=== PATIENT | female | born 1945 | race Caucasian/White ===

== ENCOUNTER 2023-07-14 17:22 | Emergency (ER) | payer MEDICARE, SELFPAY ==
[2023-07-14 17:29] VITALS: BP 153/74; PULSE 80; RESP 16; TEMP 36.6; BMI 25.2
--- NOTE | 2023-07-14 17:39 | XR_ITS ---
[facility] [place] [id number] Patient Name: MARLENE CLIFFORD MRN: [id number] date: 1945 Sex: F Assigned Patient Location: ER Current Patient Location: ER Accession/Order Number: [id number] Exam Date: 07/14/2023 17:55 Report Date: 07/14/2023 18:24 At the request of: BLOSSOM MOURA Procedure: XR ankle RT min 3V EXAM: XR tibia fibula RT 2V, XR ankle RT min 3V, XR knee RT 3V HISTORY: Fall COMPARISON: None. TECHNIQUE: 3 views of the knee, 4 views of the tibia and fibula and 3 views of the ankle FINDINGS: IMPRESSION: No fracture, dislocation, subluxation or osseous lesion. 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 No joint effusions. Joint spaces are unremarkable for patient's age. Nondescript soft tissue edema. Electronically authenticated by: DANIELLA EPPS Date: 07/14/2023 18:24
--- NOTE | 2023-07-14 17:39 | XR_ITS ---
[facility] [place] [id number] Patient Name: MARLENE CLIFFORD MRN: [id number] date: 1945 Sex: F Assigned Patient Location: ER Current Patient Location: ER Accession/Order Number: [id number] Exam Date: 07/14/2023 17:55 Report Date: 07/14/2023 18:24 At the request of: BLOSSOM MOURA Procedure: XR tibia fibula RT 2V EXAM: XR tibia fibula RT 2V, XR ankle RT min 3V, XR knee RT 3V HISTORY: Fall COMPARISON: None. TECHNIQUE: 3 views of the knee, 4 views of the tibia and fibula and 3 views of the ankle FINDINGS: IMPRESSION: No fracture, dislocation, subluxation or osseous lesion. 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 No joint effusions. Joint spaces are unremarkable for patient's age. Nondescript soft tissue edema. Electronically authenticated by: DANIELLA EPPS Date: 07/14/2023 18:24
--- NOTE | 2023-07-14 17:39 | XR_ITS ---
[facility] [place] [id number] Patient Name: MARLENE CLIFFORD MRN: [id number] date: 1945 Sex: F Assigned Patient Location: ER Current Patient Location: ER Accession/Order Number: [id number] Exam Date: 07/14/2023 17:55 Report Date: 07/14/2023 18:24 At the request of: BLOSSOM MOURA Procedure: XR knee RT 3V EXAM: XR tibia fibula RT 2V, XR ankle RT min 3V, XR knee RT 3V HISTORY: Fall COMPARISON: None. TECHNIQUE: 3 views of the knee, 4 views of the tibia and fibula and 3 views of the ankle FINDINGS: IMPRESSION: No fracture, dislocation, subluxation or osseous lesion. 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 No joint effusions. Joint spaces are unremarkable for patient's age. Nondescript soft tissue edema. Electronically authenticated by: DANIELLA EPPS Date: 07/14/2023 18:24
--- NOTE | 2023-07-14 17:42 | ED_ITS ---
HPI - Extremity Injury (Lower) General Chief Complaint: Extremity Injury, Lower Stated Complaint: FELL AT HOME INJURED R LEG Time Seen by Provider: 07/14/23 17:27 Source: patient Mode of arrival: Wheelchair Limitations: no limitations History of Present Illness HPI Narrative: 78-year-old female presents for pain in her right leg. At noon she fell down some carpeted stairs. She complains of pain from just below her knee all the way down to her ankle. She didn't hit her head and didn't lose consciousness. No other injury was sustained. Related Data Allergies Allergy/AdvReac Type Severity Reaction Status Date / Time Latex, Natural Rubber Allergy Severe Verified 07/14/23 17:29 acetaminophen [From Vicodin] AdvReac Severe Unconscious Verified 07/14/23 17:29 hydrocodone [From Vicodin] AdvReac Severe Unconscious Verified 07/14/23 17:29 Review of Systems ROS Narrative A ten point review of systems is negative except as noted above. PFSH PFSH Social History Smoking status: Never smoker Exam Narrative Exam Narrative: Nurses note and vital signs reviewed and patient is not hypoxic. General: The patient appears well and in no apparent distress. Patient is resting comfortably on cart. Skin: Warm, dry, no pallor noted. There is no rash noted. Head: Normocephalic, atraumatic Eye: Normal conjunctiva, no drainage, EOMI. PERRL Ears, Nose, Mouth, and Throat: oral mucosa is moist. Nares patent. Cardiovascular: Regular Rate and Rhythm Respiratory: Patient is in no distress, no accessory muscle use, lungs are clear to auscultation, no wheezing, rales or rhonchi Back: non-tender, no CVA tenderness bilaterally to percussion. GI: soft and nontender Musculoskeletal: she has some tenderness of the inferior portion of the right knee and across the anterior ankle. The foot itself is nontender including the 5th metatarsal area. Neurological: A&O, normal speech Psychiatric: Cooperative Constitutional Vital Signs, click to edit/add: Last Vital Signs Temp 98 F 07/14/23 17:29 Pulse 80 07/14/23 17:29 Resp 16 07/14/23 17:29 BP 153/74 H 07/14/23 17:29 Course Vital Signs Vital signs: Vital Signs Temperature 98 F 07/14/23 17:29 Pulse Rate 80 07/14/23 17:29 Respiratory Rate 16 07/14/23 17:29 Blood Pressure 153/74 H 07/14/23 17:29 Temperature 98 F 07/14/23 17:29 Pulse Rate 80 07/14/23 17:29 Respiratory Rate 16 07/14/23 17:29 Blood Pressure 153/74 H 07/14/23 17:29 MDM - Extremity Injury (Lower) MDM Narrative Medical decision making narrative: x-rays per radiologist showed no acute findings and the patient is able to be discharged home. She was recommended ice and rest. Treatment diagnosis and fo llow-up were discussed with the patient. Differential Diagnosis Differential diagnosis: Likely ankle sprain and strain and ankle fracture Imaging Data x-rays of the right knee, right tibia-fibula, right ankle: Radiologist's impression: no acute findings per radiologist Discharge Plan Discharge Chief Complaint: Extremity Injury, Lower Clinical Impression: Fall Patient Disposition: Home, Self-Care Time of Disposition Decision: 18:31 Condition: Good Mode of Transportation: Private Vehicle Instructions: Fall Prevention for Older Adults (ED) Stand Alone Forms: Portal Instructions Referrals: Physician,Non-Staff, MD [Primary Care Provider] - 1 week
== END 2023-07-14 18:50 | disposition home or self-care (01) ==
PROVIDERS: Emergency Provider Emergency Medicine
DX: S89.91XA Unspecified injury of right lower leg, initial encounter (principal); W10.8XXA Fall (on) (from) other stairs and steps, initial encounter
CPT/HCPCS: 73562; 73590; 73610; 99284

== ENCOUNTER 2024-09-16 11:33 | Outpatient (OUT) | payer MEDICARE, SELFPAY ==
--- NOTE | 2024-09-16 11:52 | XR_ITS ---
The [address] [address] Patient Name: MARLENE CLIFFORD MRN: [id number] date: 1945 Sex: F Assigned Patient Location: [facility] Current Patient Location: [facility] Accession/Order Number: [id number] Exam Date: 09/16/2024 12:22 Report Date: 09/16/2024 12:34 At the request of: EVELYNE LEGGETT MD Procedure: XR lumbar spine 6V w bending CLINICAL DATA: Posterior neck pain for the past week. Chronic low back pain, greater on the right with radiation to the leg. No injury. CERVICAL SPINE WITH FLEXION AND EXTENSION VIEWS - 7 views: COMPARISON: None TECHNIQUE: AP, lateral (neutral, flexion, extension) both oblique and odontoid views were obtained. FINDINGS: There is osteopenia. There is no evidence of fracture. There is minimal anterolisthesis of C4 on C5. This is less evident with extension. Disc space narrowing and endplate spurring is present at C5-6. There is mild bony foraminal encroachment at C6, greater on the right. The atlantoaxial relationship is preserved. There is no prevertebral soft tissue swelling. XR/XR lumbar spine 6V w bending IMPRESSION: MILD DEGENERATIVE CHANGE, GREATEST AT C5-6. LUMBAR SPINE WITH FLEXION-EXTENSION VIEWS - 7 views COMPARISON: None AP, lateral (neutral, flexion and extension), both oblique and lateral coned-down views lumbosacral junction were obtained. There is osteopenia. No acute fractures or displacement are seen. No instability is noted. There is no disproportionate joint space narrowing. There is minor endplate spurring and mild lower lumbar facet hypertrophy. No pars defects are identified. The SI joints are intact and show slight sclerosis. No paraspinal soft tissue abnormalities are seen. IMPRESSION: OSTEOPENIA AND MINIMAL DEGENERATIVE CHANGE. NO ACUTE BONY FINDINGS. Impression dictated by: Evelyne Blackwell M.D.09/16/2024 12:34 PM Dictation Location: [facility] Electronically authenticated by: [id number] Y Date: 09/16/2024 12:34
--- NOTE | 2024-09-16 11:52 | XR_ITS ---
The [address] [address] Patient Name: MARLENE CLIFFORD MRN: [id number] date: 1945 Sex: F Assigned Patient Location: [facility] Current Patient Location: [facility] Accession/Order Number: [id number] Exam Date: 09/16/2024 12:22 Report Date: 09/16/2024 12:34 At the request of: EVELYNE LEGGETT MD Procedure: XR lumbar spine 6V w bending CLINICAL DATA: Posterior neck pain for the past week. Chronic low back pain, greater on the right with radiation to the leg. No injury. CERVICAL SPINE WITH FLEXION AND EXTENSION VIEWS - 7 views: COMPARISON: None TECHNIQUE: AP, lateral (neutral, flexion, extension) both oblique and odontoid views were obtained. FINDINGS: There is osteopenia. There is no evidence of fracture. There is minimal anterolisthesis of C4 on C5. This is less evident with extension. Disc space narrowing and endplate spurring is present at C5-6. There is mild bony foraminal encroachment at C6, greater on the right. The atlantoaxial relationship is preserved. There is no prevertebral soft tissue swelling. XR/XR cervical spine w flex/ext IMPRESSION: MILD DEGENERATIVE CHANGE, GREATEST AT C5-6. LUMBAR SPINE WITH FLEXION-EXTENSION VIEWS - 7 views COMPARISON: None AP, lateral (neutral, flexion and extension), both oblique and lateral coned-down views lumbosacral junction were obtained. There is osteopenia. No acute fractures or displacement are seen. No instability is noted. There is no disproportionate joint space narrowing. There is minor endplate spurring and mild lower lumbar facet hypertrophy. No pars defects are identified. The SI joints are intact and show slight sclerosis. No paraspinal soft tissue abnormalities are seen. IMPRESSION: OSTEOPENIA AND MINIMAL DEGENERATIVE CHANGE. NO ACUTE BONY FINDINGS. Impression dictated by: Evelyne Blackwell M.D.09/16/2024 12:34 PM Dictation Location: [facility] Electronically authenticated by: [id number] Y Date: 09/16/2024 12:34
--- OUTSIDE RECORDS SUMMARY | 2024-09-16 11:56 | XMS_ITS | CCD ---
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 Name Role Phone Evelyne Leggett MD Primary Care Provider [phone] EVELYNE LEGGETT Primary Care Unavailable SELF, SELF Referring Unavailable RHIANNA, MEEK Maguire Attending Unavailable MISC, DR WELSH Attending Unavailable MISC, DR WELSH Consulting Unavailable MISC, DOCTOR Admitting Unavailable MISC, DOCTOR Attending Unavailable MISC, DR WELSH Consulting Unavailable MISC, DR WELSH Admitting Unavailable ZIEBER, DR MIGEL Soler Consulting Unavailable MD Evelyne Leggett Primary Care Provider DO Jayro Schulz Attending Provider Evelyne Leggett Primary Care Unavailable Jayro Schulz Attending Unavailab Jayro Montero Admitting Unavailab EVELYNE Fu Referring Unavailable JOVANNI NARVAEZ Attending Unavailable Evelyne Leggett Attending Unavailable Evelyne Leggett Primary Care Unavailable Evelyne Leggett Primary Care Unavailable Evelyne Leggett Attending Unavailable Evelyne Leggett Primary Care Unavailable Evelyne Leggett Attending Unavailable Evelyne Leggett Admitting Unavailable Evelyne Leggett Attending Unavailable Evelyne Leggett Primary Care Unavailable Evelyne Leggett Admitting Unavailable Evelyne Leggett Attending Unavailable Evelyne Leggett Primary Care Unavailable Allergies Allergy Classification Reported Allergen(s) Allergy Type Date of Onset Reaction(s) Facility (1 source) ALLERGIES NOT ON FILE; Translations: [ALLERGIES NOT ON FILE] Propensity to adverse reactions (disorder) [facility] Repository (1 source) Acetaminophen / HYDROcodone; Translations: [Vicodin] Drug Allergy [facility] Repository (1 source) Latex; Translations: [Latex] Propensity to adverse reactions to drug (disorder) [facility] Repository Medications Current Medications Medication Drug Class(es) Dates Sig (Normalized) Sig (Original) pravastatin sodium 40 mg oral tablet (1 source) HMG-CoA Reductase Inhibitor Start: 04-08-2022 take 1 tablet by mouth once daily pravastatin 40 MG tablet Take 40 mg by mouth daily. 0 04/08/2022 Active Problems Active Problems Problem Classification Problem Date Documented Da te Episodic/Chronic Disorders of lipid metabolism (1 source) Hyperlipidemia, unspecified; Translations: [HYPERLIPIDEMIA UNSPECIFIED] Onset: 04-24-2022 Chronic Osteoarthritis (2 sources) Unilateral primary osteoarthritis, unspecified hip; Translations: [Unilateral primary osteoarthritis, unspecified hip] Onset: 03-10-2024 Chronic Other aftercare (1 source) [facility] (current) use of non-steroidal anti-inflammatories (NSAID); Translations: [FCI USE NSAID] Onset: 04-24-2022 Episodic Other eye disorders (4 sources) Other forms of nystagmus; Translations: [OTHER FORMS OF NYSTAGMUS] Onset: 04-01-2022 Chronic Other upper respiratory infections (3 sources) Acute upper respiratory infection; Translations: [Acute upper respiratory infection, unspecified] Onset: 04-20-2022 Episodic Residual codes; unclassified (4 sources) Other amnesia; Translations: [OTHER AMNESIA] Onset: 04-22-2022 Episodic Residual codes; unclassified (2 sources) Localized edema; Translations: [Localized edema] Onset: 03-10-2024 Episodic Retinal detachments; defects; vascular occlusion; and retinopathy (2 sources) Unspecified macular degeneration; Translations: [Unspecified macular degeneration] Onset: 03-10-2024 Chronic Spondylosis; intervertebral disc disorders; other back problems (1 source) Dorsalgia, unspecified; Translations: [Dorsalgia, unspecified] Onset: 08-24-2024 Episodic Unclassified (1 source) Monocular exotropia, right eye; Translations: [Monocular exotropia, right eye] Onset: 01-17-2023 Unclassified (1 source) Low back pain, unspecified; Translations: [Low back pain, unspecified] Onset: 03-10-2024 Past or Other Problems Problem Classification Problem Date Documented Da te Episodic/Chronic Unclassified (1 source) Low back pain, unspecified; Translations: [Low back pain, unspecified] Onset: 03-10-2024 Results Test Name Value Interpretation Reference Range Facility Reminder Messageson 09-14-19 Reminder Messages - From: Evelyne Leggett MD To: [facility] ([facility]); Sent: 09/13/2024 12:07:56 EST ! Show up: 09/13/2024 12:07:56 EST Subject: Results Follow Up Actions: Call the patient with result(s) Due Date/Time: 09/14/2024 12:07:00 EST Reminder Comments: Please tell her that her gallbladder did show some wall thickness which may suggest previous inflammation. Consider referral to surgeon to review results or monitor symptoms. RENA Results: Date Result Type Result Name 09/09/2024 10:29 Radiology US Gallbladder From: Maru Hooper ([facility] ([facility])) To: Evelyne Leggett MD; Sent: 09/13/2024 13:36:11 EST Show up: 09/13/2024 13:36:00 EST Subject: RE: Results Follow Up she would like a referral referral completed. RAMYAK Normal [facility] Reminder Messageson 09-13-19 Reminder Messages - From: Evelyne Leggett MD To: [facility] ([facility]); Sent: 09/13/2024 12:08:28 EST ! Show up: 09/13/2024 12:08:28 EST Subject: Results Follow Up Actions: Call the patient with result(s) Due Date/Time: 09/14/2024 12:08:00 EST Reminder Comments: Please tell her that her echocardiogram looks pretty good and just has a little bit of leakage from one of her valves which we can monitor. RENA Results: Date Result Type Result Name 09/09/2024 12:42 Radiology US Echocardiogram Complete patient informed Normal [facility] US Echocardiogram Completeon 09-09-2024 US Echocardiogram Complete APPROVED REPORT EXAM: Comprehensive 2D, Doppler, and color-flow Echocardiogram BSA: 1.87 m2BP: 170/80 mmHg Rhythm: NSR Indications: Dyspnea on exertion, Fatigue, Back pain Past Med. Hx: GERD, HLD Other Information Study Quality: Good Conclusion The left ventricular systolic function is normal. The left ventricular ejection fraction is within the normal range. Right atrium is mildly dilated. Mild mitral regurgitation. There is moderate tricuspid regurgitation. The right atrial pressure is estimated at 3 mmHg. Right ventricular systolic pressure is estimated at 37.4 mmHg. Left Ventricle The left ventricle is normal size. There is normal left ventricular wall thickness. The left ventricular systolic function is normal. The left ventricular ejection fraction is within the normal range. LVEF is 60-65%. There is normal LV segmental wall motion. E/A reversal is present. Tissue Doppler imaging reveals indeterminate left ventricular diastolic dysfunction. Right Ventricle The right ventricle is normal size. The right ventricular systolic function is normal. Atria The left atrium size is normal. Right atrium is mildly dilated. Aortic Valve Aortic valve is trileaflet. Aortic valve leaflets are mildly thickened. Adequate excursion of aortic valve leaflets. There is no aortic valvular stenosis. No aortic regurgitation is present. Mitral Valve Mitral valve leaflets are mildly thickened. Mild mitral regurgitation. Tricuspid Valve The tricuspid valve is normal in structure. There is moderate tricuspid regurgitation. The right atrial pressure is estimated at 3 mmHg. Right ventricular systolic pressure is estimated at 37.4 mmHg. Pulmonic Valve The pulmonary valve is normal in structure. Trace pulmonic regurgitation. Great Vessels The aortic root is normal in size. IVC is normal in size and collapses >50% with inspiration. Pericardium There is no pericardial effusion. 2D Dimensions RV Minor (Base)3.94 cmLV EDV (Teich) 89.14 mL IVSd 0.85 cm F: 0.6 - 0.9LV ESV (Teich) 36.86 mL LVDd 4.43 cm F: 3.9 - 5.3Left Atrium 2.85 cm F: 2.7 - 3.8 PWd 0.89 cm F: 0.6 - 1.0Sinus of Valsalva3.20 cm LVDs 3.06 (2.1 - 4.0 cm) Sinotubular Junction2.47 cm F: 2.3 - 2.9 LV Rfnq233.33 g LVOT Diameter 1.80 cm IVC1.54 (<= 2.1cm) M-Mode Dimensions Aortic Root2.76 cm F: < 3.8MV EPSS0.40 ( < 0.7 cm) Aortic Cusp Exc1.96 (1.5 - 2.6 cm)TAPSE 2.5 (>1.7) Left Atrium3.89 cm F: 2.7 - 3.8 LV Volume - Method of Disks (Hays's) Single Plane 2D LV VolumesBiplane 2D LV Volumes LV EDV A4C79.6 mLLV EDV BP84.26 mL F: 46 - 106 LV ESV A4C29.9 mLLV ESV BP31.9 mL LVEF(%) A4C62.4 %LVEF(%) BP62.10 % F: 54 - 74 LV EDV A2C85.2 mLLV EDV BP Index44.81 mL/m2 F: 29 - 61 LV ESV A2C32.7 mLSV (BP)52.33 mL LVEF(%) A2C61.6 %SV (BP) Index27.88 mL/m2 CO BP3.2 L/min Left Atrium Volume Systole (Method of Disks) Single Plane 4 CH 46.20 mLBiplane LA Uhbguo84.85 mL Single Plane 2 CH30.74 mLLA ESV Index23.86 mL/m2 Right Atrium Area Systole RA Systolic Area A4C19.60 cm2RA Systolic Vol A4C62.10 mL Aortic Valve AoV Peak Velocity1.32 m/sLVOT Peak Velocity1.01 m/s AO Mean Velocity0.85 m/sLVOT Mean Velocity0.55 m/s AO Peak PG7.01 mmHgLVOT Peak PG4.06 mmHg AO Mean PG3.34 mmHgLVOT Mean PG1.55 mmHg AO V2 VTI33.38 cmLVOT V1 VTI25.56 cm FERNANDA (Vmax)1.93 pz4NECX Area 2.54 cm2 FERNANDA (VTI)1.95 cm2SV (LVOT) 64.98 mL Indexed FERNANDA (VTI)1.04 cm2/m2 Mitral Valve MV Max Fmtqyfsd082.21 m/sMV PHT85.72 ms MV E Max Velocity0.59 m/sMVA (PHT)2.57 cm2 MV A Max Velocity0.75 m/sMR DGL109.31 cm E/A Ratio0.8MR Peak Velocity5.18 m/s MV Decel. Zqbm056.60 ms TDI Med e' Velocity5.38 cm/sMV E / Medial e' 10.91 Lat e' Velocity7.25 cm/sMV E / Lateral e' 8.09 TV S'11.24 cm/s Pulmonary Valve PV Peak Velocity0.72 m/sPV Peak PG2.09 mmHg MO End Diastolic Jorje.66.82 m/s PV Mean PG1.22 mmHg Tricuspid Valve TR Peak Velocity2.93 m/sRAP Estimate3.00 mmHg TR Peak PG34.42 yqGyLILQ93.42 mmHg Final Signed (Electronic Signature): Lavon Mathis MD 09/09/24 12:42 p Technologist: [facility] US Gallbladderon 09-09-2024 US Gallbladder EXAMINATION: US Gallbladder HISTORY: Right upper quadrant pain COMPARISON: No relevant comparison available. TECHNIQUE: Transabdominal evaluation of the right upper quadrant. FINDINGS: LIVER: Contains a 4.7 cm and a 2.2 cm rounded anechoic structure favoring benign cysts. Color Doppler demonstrates patent hepatic veins. PORTAL VEIN: Duplex Doppler demonstrates normal hepatopetal flow pattern with flow velocity averaging 20 cm/s. GALLBLADDER: Wall thickness just exceeds upper limits of normal, 3.5 mm. No appreciable stones or free fluid. Negative sonographic Banks's sign. BILIARY: No abnormal dilation or stones. Common bile duct diameter is within normal limits. PANCREAS: Limited evaluation. No visible mass, abnormal atrophy, or duct dilation. KIDNEY: No hydronephrosis. No visible mass or stones. Size: 9.9 x 4.7 x 5.6 cm IMPRESSION: 1. Gallbladder wall thickness is just exceeds upper limits of normal; nonspecific but suggestive of acute versus chronic cholecystitis. The lack of a positive Banks's sign and the lack of stones and free fluid weigh against acute cholecystitis. Final Dictated by: Migel Tafoya MD Dictated DT/TM: 09/09/24 10:20 Signed (Electronic Signature): Migel Tafoya MD 09/09/24 10:27 a Technologist: [facility] Coding Summaryon 08-30-2024 Coding Summary HTMLBase 64 QzugfnunQVh7wAt+PGhlY WQ+PR1ATVZuY52loOJejF 8sG4IXBRfVRgzvISOEJHa OBvHacxMfML2uaDZpZCCh IC8+RN5hQIVdKgidqWPnq 0M5mQU2W29yss1ePUxhuI G5WBNnDmFpdsfzx0mzqUh 6IDcuNmluOyBt CBUifF75WWJ4kH45Kx89w PSxcGPqn2blhNp8UxLhYE DgKVY5lUoxOTznf8FhYFF uO31yoTVkh9O3 OJKsgXswbGFkDcAepXP3m F0eJBfipmtqf3ficvjxXt w6tp78dZWyh3G5yZM5N4W djzJ5KESkgOMk ByskhDNWgY7vuuhoi2vwl zacVuCyECPbFCl7CVv4UZ ErrAnaReOaSO21NOL7NJT yvgJpY9TnLWUl tMtuBeM3k4T1Ro8JO1YPY yqjS4ECQMIOWGcxnLE+PC 68vl49P4TwXjykRbp8SAG fBMW3jCZ2dM3a NIIuNDdjr9B4bXU3S7Tga xRzyz5sz0qeFTCxAJzzN6 6uoZKnf8B4GUAqjGM3CMQ fiVpySoWciV74 Oyc+SAWnhUyei0LxUehub 3hhc7ztxWm1IlppSRFxyi DqoCqyYSY1p1OmHd4kPMW teHK5gYQ6nY1k DvTrRoR4VDnmR352TdJvp JNtEsauU37dU2WpfRK+PH TbVsy3FSOaqUvcQR1oE0D hZGRpbmctbGVm bIyyHN9rQPOjryvnKHMil L4bPPBtM9s0DeJfRlX6BR nsE1PkCHBfavgtNc96gC8 bXbCmQgW5PDrw G5MxjdJ3CXRwhVRzPLpbC MY9S35ev3E0LWJtYFBuID R1hRX5eU7dpQdyckztyBQ mdDsgdmVydGlj VVbyIVxcV312HBNkqGcjM kNvZGluZyBEYXRlOiAgMD IvMTAvMjAyNTwvdGQ+PHR kDBD3bLcuAAAc cXMhFYbjLz0bkTvzpYncD P8eSNUelqlkOEEsqE0bTB GhjPNimYioNU4jVRLuscc id225JhPbTIZ1 TERicWGsG1WlqC1pZmIfO KCwDGRxS3EksLIpHFehK5 85QNtkPoF9SPVrfpJlD5E sLWFsaWduOiB0 x0L3Lr0Dw1DbksfkE7Gib DCrJrJwMkoiHQr3B3BdXn wvdHI+XI01XIXmWD13TWk 1QCB4sTsxBLak FXKoY4ZzsO2lZxLdZEUrI GRkOyc+PHRhYmxlIHdpZH RoPScxMDAlJyBzdHlsZT0 dEc7jESXrOZOp rYuknZLbKoCjn9llQYZcW TkmHR1whTtyB3YtgIG2AT Cvn3n5Jj80Y60wE5XciQM +BTDumGK1dST3 vJ3qOrTgTxO3NKawX963V vHovUMyTelil1luc2maxE u5NcY2XFCwxrHccBalUHX 6o3IcKb92L97g IHdpZHRoPSIxNSUiIHZhb Umbod3wvZ4eWs1+PGNvbC I2jXY9yV5fKoCoTnA1VFp tW875WsJsbZQk Hlgom1oid5hqaHj6EeWsC WJkriQwkJzyLUA0s1TkNy 01X0BsgZqhz6QwNen1xn2 7fEQog8L9aPB0 B9UdGIGmeulqkYIkfZyvE J0yQUGwtlptZDQixU2jKJ JkA0b1JtBwViD3MIkvW5W neaY1DBNzhTGn DJOliZPWxZ8xmmoxd3usg hlmPaLfQJOgWJr5PXi6PJ UmhHzsUmPjNZQ5FqL6YVF 8xTXqnB7cjFem uynvtY7oLjj+RUG7bXImf OSCPQ5uOmidpLG+PHRkIH X8tVpiPRwcFMMelJ0wFKY kY3u8XqGsQoU8 BPpjM6LselT1SLRynMInA ZXznQAZiW3cayegr3xrbu atJlTrCYZvEOi5OFu5OZY saWduOiBsZWZ0 KaX5OYD5sTLelY4uaWbae wkuyX2sNuw+QmlydGggRG G8ASh6P9VfWgu3JYEsgDz fZC6vkMJfAKau Hx1mkTmbiHapQF2lAZYdu dspm803KsJgy2ycMFFftA QjFPyyIOR3N38ak3O6IRW sLPWfLCL2hPK4 jP5gmXrnujcouWHteGmcz vFluKifADnwYLmqT451OQ TpaApfYsOzZUo7R5FmQxw 3MXEsjXklOP3z sTDlQOhgEf2vfZxeoTqoL W4vIUYjnbyil404LfTba1 shSCXpiGLoWGdmAHF8K26 bx1O3DNOmCPAf XBI5aSR0fT4euYasfsbzj GVmdDsgdmVydGljYWwtYW gkV659LVDozJvtKxSmgOm 1M5AfCxc3NUOj gBsrUF4ykRCzKQhrAr7iv RuodCwlXZ4zVWVsyzxbu7 80JnGgo6ldPPYzcJDqRTb kEGZ2S43xl3I6 OTTyCBMvDLT6hRF4hM8tn GlnbjogbGVmdDsgdmVydG znTZqgBJpuQ957LZJqrTr nPlBhdGllbnQg CFhoIXm8Y9UbUmrxvDS+P Z73ZEPpGH01zGEecWJnf6 tfxNu5DgAbXEJxFCR3dRb iEAkei6DzKDCh B39ssBJuy6H7QEPuhLjtm STmUyQalVM0fY5dRDlqwf vhi1rnupdnJpssd0trnu6 3eE67Q23rWQml ZHRoPSIzMCUiIHZhbGlnb z5niK3nWv2+QHOqqFV5aC M5dR3yEIMxBbY5IBwyU07 9InRvcCIvPjxj i6csu8necFp9IzX2KFHmf mQbqTtuAWX2f9MoTk51T3 9sIHdpZHRoPSIyMCUiIHZ ayEsgbo5alO1z Ii8+UOGbpML3nMX3xO9cG tWmDqX0SSutA839QeQafN EbPkfgL56bI2DttWX+PHR hJxc8NYBvsQpy KO4toYSfUEquAc3jVIU8W pOaUdXnLRqzV2FoCKGftb kwlawoqBP7SXOhUFIeuZ4 6Ur8drAzmFKLo yQLVmT4jlcbic6whggcnT kWkHHOiDPz4SOy0PCKzkT uaXaTePWH1RjW0AEP4xFI iqL0yrRvoieso eL7zV1JfSCPnlimdFu86m Y7aFcPeQfO3JCyvAyu+S0 lLNTPnXUjSVuLYCYL1C3A lCux9EZCqmAee XG6qsFIiYQfnNz3mnBary NazFV3mECBbgrahFQOahE 2bJOHmpNMpnAfjSY8pIRT mvbegu425FfRs KFF8UXIblGQuB5GzjG6wG xFcSBAeHVAyZ5HvaOVjVQ foA984KOaaCjQ4ZVKehiL rN4XwVWEqcInr PcO8d9A1Mq8fTG6qEA8gD AA6HO10BU46xAWbx7F9nX P2V6KcDNWszncngsobiDL 0EKCyUFUokY38 tMCjZQtkNw9fb5M3b420P RHvVDRlsQ58Yg6tiJuvAX JprUQCzZ2pelksj4kutih gIzAwMDAwMDt0 SFe6HVPyfAytXcWaUGI1V dA5ZRG5zQTouF2ftAnawp kldX1nLwn+NzcgWWVhcnM 3G8CnUyn0AFJy xUdcJJ0eiYKjKZbjRe0ib DxymQykHC1uNBNkbttlSS LrlA8jHYOqlVWiiFcyAI4 bZJJmnkzbg688 CgEyGEV8DTVtdVYeU9Wfl S8aPvYdFXHuTBKtT3DmlA HkFQezH652TLujLvT8RUQ mxuQrP5RnGWYa pObjEgZ2n9K9Pi3MFS3HT PI7N0OjThk8RRYgzYczDW 4mnXFqRIijEq6xhRjnjZv gCY0vAVAnlbtm ICWkfC1oLJNmeZUauClnZ O4iKQMzjswec952TsPlSW Z3UPEcdZZhB2PdyG3vLeH mZXJjYPEyB3Mg eRVhTMlxD556JUhyMnN4Y TCdhgUlN5GnWRQxiDmmBz N3q2N2Cd8FFAdpyHU+PC9 8wb23Y5BvRjfw Tbw0AYMfXQH2aQL4qY4sS KDpPMzeb9O9pCI3S5Mdbv Oggk4fs5xbHTQwUBqgB77 piJJsn8X8JGHz tLH2ZOMevTvqUcYxaW19Y yc+MMLvnUgfg8FyEulqj9 uph0cdfAa6ApStWWYubhM bjUljESU9u3Ig Bm79Q20qWFteIRKzVZQgN LLoPIDcsYanyp4ibC4qYz 8+EZWcrZW2dIY5fN1bEvI eWbJ8ZEqrT011 XzAadTNeQelrm6rnf7ovd Gu7YwIlHTCjymHowWorNJ G6c1ZxFv51B9LqlOvhb9X xJgz3gd89qLIs g5L8nKX4I7LrRAQyenuhu HUtkZynKK1rQIWxqohzGB DttI4lVBTwS0e6AfMuJpS 9RIpnN3QmdhD1 ZBBysPWrPJYntJEHrJ5ut lbai6olmtixByWiOAYyLI w7PCg0CKMaqPlyRvViTIU 7GdC6HBG1nXSi zS0liZgegdvymC1lDmj+U Fm8a6zljTDqYM3suGZ1MP 50WW48bVNeh3S9uND0B1K hZGRpbmctcmln yXX2AGZzNUIwgF60Ep6tn HphCe0vGAQeHHP6RISlsX UzG1MfrU2wAvFoAHMpWLI jP0FpoNNtWTlp L779DCpbBcJ3LRMlakMlS 0FyMCCmsYueKuT2o8T8Pi 1MOW96TS48NI47cIUgm6U 2rKO3M4WeQJQj iifofmhtwAE1BFNmTFPtf B89Tb8hwLrlNl5gJQZcZM K5TXImzUFlL2OffG8hDoY jOTRzROHjZ3Cu sKSnMGhjQ511INqkPfU9V AFxczOeD1NxFCLkkEfjSb D4o9Q1Da5JNi29OL41KB7 9oLJla1O8oRS2 U7XdZUCqnqqusuzfaGP1C MGwSMRjkH36Fo9tyVszMx 6bGNBjXLV3MUBybFDyI4Y quM4wZlAkGHCy GCJmS4KjzPJpCJjkB811P IyyRhU6THOecjAiB4EsMY QwcHapXeJ5l7R1Zm4DFOm cynt7J7ZtRbay dHI+QH97EZIeBX33dGZlp UGso4gafTd1DxQjOKJoBI U8wDrrTWwnp8MqTPKjB72 sbAUbz6M2NOHo bGx (more content not included)... Normal [facility] Reminder Messageson 08-30-19 25 Reminder Messages - From: Evelyne Leggett MD To: [facility] ([facility]); Sent: 08/30/2024 08:41:39 EST ! Show up: 08/30/2024 08:41:39 EST Subject: Results Follow Up Actions: Call the patient with result(s) Due Date/Time: 08/31/2024 08:39:00 EST Reminder Comments: Please tell her that x-ray shows some arthritis but nothing more worrisome. Await results of echo and ultrasound when completed. RENA Results: Date Result Type Result Name 08/27/2024 9:58 Radiology XR Spine Thoracic 3 Views lvm to return call for results lvm with below message Normal [facility] Reminder Messageson 08-25-19 25 Reminder Messages - From: Evelyne Leggett MD To: [facility] ([facility]); Sent: 08/25/2024 12:47:18 EST ! Show up: 08/25/2024 12:47:18 EST Subject: Results Follow Up Actions: Call the patient with result(s) Due Date/Time: 08/26/2024 12:46:00 EST Reminder Comments: Her vitamin D, B12, and iron are little low which could explain symptoms. I can send in vitamin D if agreeable-can take gewm-wyc-rqlqvhr B12 2000 mg daily and increase iron dietary. Recheck labs 2/3 months. Results: Date Result Name Ind Value Ref Range 08/24/2024 11:23 Sodium Level 139.0 mmol/L (136.0 - 144.0) 08/24/2024 11:23 Potassium Level 4.4 mmol/L (3.6 - 5.1) 08/24/2024 11:23 Chloride Level 105 mmol/L (101 - 111) 08/24/2024 11:23 CO2 25 mmol/L (21 - 32) 08/24/2024 11:23 Anion Gap 13.4 mmol/L (5.0 - 19.0) 08/24/2024 11:23 Glucose Level 100.0 mg/dL (74.0 - 118.0) 08/24/2024 11:23 BUN 15 mg/dL (8 - 26) 08/24/2024 11:23 Creatinine Level 0.79 mg/dL (0.60 - 1.30) 08/24/2024 11:23 BUN/Creat Ratio (H) 18.9 (4.6 - 16.2) 08/24/2024 11:23 eGFR AA >60 mL/min/1.73m2 08/24/2024 11:23 eGFR Non AA >60 mL/min/1.73m2 08/24/2024 11:23 Calcium Level 9.0 mg/dL (8.9 - 10.3) 08/24/2024 11:23 Bili Total 0.8 mg/dL (0.3 - 1.2) 08/24/2024 11:23 Alk Phos 52 IU/L (32 - 91) 08/24/2024 11:23 AST/SGOT 23 IU/L (15 - 41) 08/24/2024 11:23 ALT/SGPT 24.0 IU/L (14.0 - 54.0) 08/24/2024 11:23 Protein Total 7.0 gm/dL (6.5 - 8.1) 08/24/2024 11:23 Albumin Level 3.9 gm/dL (3.5 - 5.0) 08/24/2024 11:23 Globulin 3.1 gm/dL (1.5 - 4.3) 08/24/2024 11:23 A/G Ratio (L) 1.2 (1.4 - 2.6) 08/24/2024 11:23 Estimated Avg Glucose 117 mg/dL 08/24/2024 11:23 Osmolality 278 mOsm/L 08/24/2024 11:23 Hgb A1c % 5.7 % (4.6 - 6.2) 08/24/2024 11:23 Vit B12 226 (180 - 914) 08/24/2024 11:23 Vitamin D 25 OH (L) 16 ng/mL (30 - 100) 08/24/2024 11:23 T4 Free 0.98 ng/dL (0.61 - 1.12) 08/24/2024 11:23 TSH 2.06 mcIU/mL (0.45 - 5.33) 08/24/2024 11:23 Iron Level 87.0 mcg/dL (28.0 - 170.0) 08/24/2024 11:23 TIBC 391 mcg/dL (250 - 400) 08/24/2024 11:23 Iron Sat 22 % (20 - 55) 08/24/2024 11:23 Ferritin 29.7 ng/mL (12.0 - 150.0) 08/24/2024 11:23 Transferrin 279.0 mg/dL (192.0 - 382.0) 08/24/2024 11:23 BNP 57.4 (0.0 - 100.0) 08/24/2024 11:23 WBC 7.1 x103/mcL (3.5 - 10.5) 08/24/2024 11:23 RBC 4.80 x106/mcL (3.70 - 5.30) 08/24/2024 11:23 Hgb 14.4 gm/dL (11.3 - 15.9) 08/24/2024 11:23 Hct (H) 43.9 % (33.7 - 40.4) 08/24/2024 11:23 MCV 91 fL (81 - 100) 08/24/2024 11:23 MCH 30 pg (24 - 34) 08/24/2024 11:23 MCHC 33 gm/dL (26 - 37) 08/24/2024 11:23 RDW 13.9 % (11.5 - 15.0) 08/24/2024 11:23 Platelet 243 x103/mcL (138 - 427) 08/24/2024 11:23 MPV (H) 10.4 fL (6.3 - 10.2) 08/24/2024 11:23 Auto Neut % 63 % (44 - 88) 08/24/2024 11:23 Auto Lymph % 23 % (14 - 48) 08/24/2024 11:23 Auto [place] % 9 % (1 - 12) 08/24/2024 11:23 Auto Eos % (H) 4.4 % (0.9 - 4.0) 08/24/2024 11:23 Auto Baso % 0.5 % (0.2 - 2.0) 08/24/2024 11:23 Neut Abs# 4.5 x103/mcL (1.5 - 9.2) 08/24/2024 11:23 Lymph Abs# 1.6 x103/mcL (1.3 - 2.9) 08/24/2024 11:23 [place] Abs# 0.6 x103/mcL (0.0 - 0.8) 08/24/2024 11:23 Eos Abs# 0.3 x103/mcL (0.0 - 0.4) 08/24/2024 11:23 Baso Abs# 0.0 x103/mcL (0.0 - 0.2) From: Maru Hooper ([facility] ([facility])) To: Evelyne Leggett MD; Sent: 08/25/2024 13:26:22 EST Show up: 08/25/2024 13:26:00 EST Subject: RE: Results Follow Up Patient informed and states understanding. She would like to get vitamin D OTC. Informed to take 2000 units daily. Normal [facility] .Auto Diff 08-24-2024 Auto [place] % 9 % Normal 08-01 [facility] Comment on above: Performed By: #### 1 [id number], 0266951, 6949197, 9705912, [id number], 6921460, 2872373, [id number], [id number], 3499190, 25692208 #### [facility] (DEFAULT) [address] [id number] Baso Abs# 0.0 x10 Normal 0.0-0.2 [facility] Comment on above: Performed By: #### 1 [id number], 3414202, 1943795, 8091175, [id number], 6880858, 1100056, [id number], 2704254320, 7586251, 84724213 #### [facility] (DEFAULT) [address] [place] [address] Basophils/100 WBC (Bld) 0.5 % Normal 0.2-2.0 [facility] Comment on above: Performed By: #### 1 [id number], 2461545, 9547474, 3520565, [id number], 9731487, 7367706, [id number], 3485303261, 3515005, 62947349 #### [facility] (DEFAULT) [address] [place] [address] Eos Abs# 0.3 x10 Normal 0.0-0.4 [facility] Comment on above: Performed By: #### 1 [id number], 3804246, 9129374, 7865691, [id number], 2500281, 6291794, 0102309637, 6111156773, 7718048, 10727799 #### [facility] (DEFAULT) [address] [place] [address] Eosinophils/100 WBC (Bld) 4.4 % High 0.9-4.0 [facility] Comment on above: Performed By: #### 1 [id number], 3494496, 6090260, 9012562, [id number], 7385815, 6425923, 9347261554, 0298246811, 0067194, 90875356 #### [facility] (DEFAULT) [address] [place] [address] Lymph Abs# 1.6 x10 Normal 1.3-2.9 [facility] Comment on above: Performed By: #### 1 [id number], 3743474, 6466312, 9768683, 2769410875, 6973176, 8357622, 4494889718, 1106732620, 5878923, 31352095 #### [facility] (DEFAULT) [address] [place] [address] Lymphocytes/100 WBC (Bld) 23 % Normal 14-48 [facility] Comment on above: Performed By: #### 1 [id number], 3600778, 6673509, 3659907, [id number], 6838549, 7400721, 1952685752, 8379604565, 5495171, 03957753 #### [facility] (DEFAULT) [address] [place] [address] [place] Abs# 0.6 x10 Normal 0.0-0.8 [facility] Comment on above: Performed By: #### 1 [id number], 6657585, 9522069, 6274178, 8504055992, 4532866, 2864667, 9345899154, 6674616245, 7780339, 33441233 #### [facility] (DEFAULT) [address] [place] [address] Neut Abs# 4.5 x10 Normal 1.5-9.2 [facility] Comment on above: Performed By: #### 1 0523184, 4233652, 3176768, 7544813, 4968611623, 5726149, 7443537, 5878691432, 1870311624, 7578072, 65067998 #### [facility] (DEFAULT) [address] [place] [address] Neutrophils/100 WBC (Bld) 63 % Normal 44-88 [facility] Comment on above: Performed By: #### 1 [id number], 4633832, 3967361, 2829435, 6919346613, 9569198, 0969305, 0040456762, 5716245257, 6224435, 05279952 #### [facility] (DEFAULT) [address] [place] [address] BNP.on 08-24-2024 Natriuretic peptide B (Bld) [Mass/Vol] 57.4 pg/mL Normal 0.0-100.0 [facility] Comment on above: Result Comment: BNP results greater than 100 pg/mL are considered abnormal and suggestive of patients with CHF. Higher BNP concentrations measured in the first 72 hours after an acute coronary syndorme are associated with an increased risk of , myocardial infarction, and CHF. Performed By: #### 1 1910071, 4235204, 9674133, 0069565, 3233326294, 4659224, 4812945, 6382341381, 3215225644, 9835949, [id number] #### [facility] (DEFAULT) [address] [place] [address] CBC w/ Auto Diffon 5 Erythrocyte distribution width (RBC) [Ratio] 13.9 % Normal 11.5-15.0 [facility] Comment on above: Performed By: #### 1 3609402, 0748065, 7973562, 5095049, 3735684945, 6712373, 0003975, 4110221583, 6889382827, 4159831, 43712268 #### [facility] (DEFAULT) [address] [place] [address] Hematocrit (Bld) [Volume fraction] 43.9 % High 33.7-40.4 [facility] Comment on above: Performed By: #### 1 8209699, 2517309, 7978363, 0615952, 2548664041, 3385281, 6340796, 7735882342, 5405408380, 0337983, 19297207 #### [facility] (DEFAULT) [address] [place] [address] Hemoglobin (Bld) [Mass/Vol] 14.4 g/dL Normal 11.3-15.9 [facility] Comment on above: Performed By: #### 1 0557677, 0571531, 9093016, 0536746, 8784805664, 9375858, 2085012, 2594286363, 8730731107, 4283052, 88420418 #### [facility] (DEFAULT) [address] [place] [address] Man Diff? Auto Invalid Interpretation Code [facility] Comment on above: Performed By: #### 1 4943303, 6052642, 8103373, 3450462, 4967527517, 7682996, 4996246, 1232760050, 3967912933, 0150375, 68187234 #### [facility] (DEFAULT) [address] [place] [address] 30161 MCH (RBC) [Entitic mass] 30 pg Normal 24-34 [facility] Comment on above: Performed By: #### 1 7201507, 1670298, 7974390, 8332727, 1355039348, 0102635, 3503798, 6802020109, 6586071582, 6341818, 41266980 #### [facility] (DEFAULT) [address] [place] [address] 09369 MCHC (RBC) [Mass/Vol] 33 g/dL Normal 26-37 [facility] Comment on above: Performed By: #### 1 0890853, 7019611, 5055665, 9516774, 4773814379, 1434129, 2389221, 5610297231, 5679299869, 4955248, 82486840 #### [facility] (DEFAULT) [address] [place] [address] 38999 MCV (RBC) [Entitic vol] 91 fL Normal 81-100 [facility] Comment on above: Performed By: #### 1 0844483, 3942459, 1922405, 7214638, 1989342454, 7271299, 0784083, 0306985395, 1265068227, 6882550, 46388140 #### [facility] (DEFAULT) [address] [place] [address] 97602 Platelet 243 x10 Normal 138-427 [facility] Comment on above: Performed By: #### 1 9937147, 3449584, 0852246, 2864111, 1485925829, 9595400, 4877173, 2086979746, 0967161542, 4430775, 54291035 #### [facility] (DEFAULT) [address] [place] [address] 34263 Platelet mean volume (Bld) [Entitic vol] 10.4 fL High 6.3-10.2 [facility] Comment on above: Performed By: #### 1 5733102, 8736946, 3291925, 2830826, 9571307314, 9954666, 5881486, 1939062833, 0461717396, 8548283, 79427631 #### [facility] (DEFAULT) [address] [place] [address] 23979 RBC 4.80 x10 Normal 3.70-5.30 [facility] Comment on above: Performed By: #### 1 3215653, 1672311, 4916254, 7213582, 3898592097, 8088505, 3419973, 1433946920, 3448959249, 3292279, 79935339 #### [facility] (DEFAULT) [address] [place] [address] 41158 WBC 7.1 x10 Normal 3.5-10.5 [facility] Comment on above: Performed By: #### 1 4791106, 6235036, 1076008, 1881403, 3108560338, 7574588, 0364544, 0236324053, 5355672574, 0129661, 95166301 #### [facility] (DEFAULT) [address] [place] [address] 61213 CMP Standardon 08-24-2024 eGFR Non AA >60 Invalid Interpretation Code [facility] Comment on above: Performed By: #### 1 8024693, 2865479, 5157513, 3279526, 3352844306, 2895292, 3019511, 8064162932, 9260429559, 8546521, 01335376 #### [facility] (DEFAULT) [address] [place] [address] 88623 eGFR AA >60 Invalid Interpretation Code [facility] Comment on above: Performed By: #### 1 2499580, 9644676, 5773766, 1498385, 1233099706, 6858913, 7529559, 4226964398, 5243112786, 9866215, 24990530 #### [facility] (DEFAULT) [address] [place] [address] 74016 Albumin [Mass/Vol] 3.9 g/dL Normal 3.5-5.0 [facility] Comment on above: Performed By: #### 1 3843884, 5859650, 1285792, 8458404, 4199977742, 3443805, 7708033, 2719521587, 6374824311, 2404839, 41456997 #### [facility] (DEFAULT) [address] [place] [address] Albumin/Globulin [Mass ratio] 1.2 {ratio} Low 1.4-2.6 [facility] Comment on above: Performed By: #### 1 3303137, 7326622, 8595118, 9072085, 3367073997, 8456645, 9070739, 7254087009, 8116054370, 0633897, 92102198 #### [facility] (DEFAULT) [address] [place] [address] Alk Phos 52 IU/L Normal 32-91 [facility] Comment on above: Performed By: #### 1 3818852, 5742830, 6892377, 9015442, 9397051878, 6716414, 5625912, 6955030818, 1134997060, 4195775, 39876958 #### [facility] (DEFAULT) [address] [place] [address] ALT [Catalytic activity/Vol] 24.0 U/L Normal 14.0-54.0 [facility] Comment on above: Performed By: #### 1 6965175, 4430074, 3082820, 9658040, 4569837122, 4654259, 7632986, 8456059756, 0873971086, 0758043, 65904129 #### [facility] (DEFAULT) [address] [place] [address] Anion gap [Moles/Vol] 13.4 mmol/L Normal 5.0-19.0 [facility] Comment on above: Performed By: #### 1 0548111, 1039795, 1266441, 3909517, 7177274054, 5062811, 5871469, 5115254515, 6123569391, 1264492, 72327491 #### [facility] (DEFAULT) [address] [place] [address] AST [Catalytic activity/Vol] 23 U/L Normal 15-41 [facility] Comment on above: Performed By: #### 1 5313713, 4436881, 8525570, 0296528, 1874994725, 6026759, 9554421, 1603057882, 3640116545, 5752325, 42510298 #### [facility] (DEFAULT) [address] [place] [address] 37135 Bili Total 0.8 mg/dL Normal 0.3-1.2 [facility] Comment on above: Performed By: #### 1 1756501, 3864608, 7674097, 8500911, 3636325042, 7405119, 9744190, 1071302977, 7594196634, 5127240, 08844419 #### [facility] (DEFAULT) [address] [place] [address] 32191 Calcium [Mass/Vol] 9.0 mg/dL Normal 8.9-10.3 [facility] Comment on above: Performed By: #### 1 1585934, 1559471, 2702339, 4045914, 6040779802, 3332401, 9886401, 1275477326, 0626759369, 8815879, 12413150 #### [facility] (DEFAULT) [address] [place] [address] 45156 Chloride [Moles/Vol] 105 mmol/L Normal 101-111 [facility] Comment on above: Performed By: #### 1 6282081, 5399251, 8306764, 8504950, 0400172040, 5557586, 1360623, 6761674186, 5872520559, 0662774, 73329608 #### [facility] (DEFAULT) [address] [place] [address] 30269 CO2 [Moles/Vol] 25 mmol/L Normal 21-32 [facility] Comment on above: Performed By: #### 1 6394991, 9918892, 8287055, 4976871, 9399037938, 3400968, 4562742, 8651341227, 3109014717, 0759553, 62888656 #### [facility] (DEFAULT) [address] [place] [address] 86652 Creatinine [Mass/Vol] 0.79 mg/dL Normal 0.60-1.30 [facility] Comment on above: Performed By: #### 1 2811342, 7209467, 4389916, 5524091, 2734994045, 7223804, 6390817, 7209959530, 0062841814, 6338229, 47691109 #### [facility] (DEFAULT) [address] [place] [address] 27482 Globulin (S) [Mass/Vol] 3.1 g/dL Normal 1.5-4.3 [facility] Comment on above: Performed By: #### 1 5461656, 6086259, 2789150, 9777748, 4328997595, 9184993, 7696894, 7663861328, 8898194985, 6508469, 81752702 #### [facility] (DEFAULT) [address] [place] [address] 95595 Glucose [Mass/Vol] 100.0 mg/dL Normal 74.0-118.0 [facility] Comment on above: Performed By: #### 1 5237373, 8368206, 3942457, 5351789, 4172652090, 0025814, 4559561, 9809656273, 0709854560, 6078294, 22063699 #### [facility] (DEFAULT) [address] [place] [address] 34565 Osmolality 278 mOsm/L Invalid Interpretation Code [facility] Comment on above: Performed By: #### 1 1183661, 0341225, 1338819, 3123992, 2693450443, 5169036, 3342973, 9438178301, 3117599834, 6910622, 27450106 #### [facility] (DEFAULT) [address] [place] [address] 21184 Potassium [Moles/Vol] 4.4 mmol/L Normal 3.6-5.1 [facility] Comment on above: Performed By: #### 1 4187875, 8171486, 3752737, 2134744, 7606339131, 9281417, 7528502, 6023782888, 6546147874, 7161028, 12949670 #### [facility] (DEFAULT) [address] [place] [address] 54641 Protein [Mass/Vol] 7.0 g/dL Normal 6.5-8.1 [facility] Comment on above: Performed By: #### 1 2711800, 1882113, 1874892, 6832205, 5141242868, 9621373, 2984062, 9992848363, 5452873900, 0731631, 19841177 #### [facility] (DEFAULT) [address] [place] [address] 18031 Sodium [Moles/Vol] 139.0 mmol/L Normal 136.0-144.0 [facility] Comment on above: Performed By: #### 1 1858583, 2287619, 9416134, 1411137, 8911226973, 8144871, 9050201, 9015942396, 4874663199, 6159380, 20950920 #### [facility] (DEFAULT) [address] [place] [address] 55435 Urea nitrogen [Mass/Vol] 15 mg/dL Normal 8-26 [facility] Comment on above: Performed By: #### 1 6517191, 8016771, 2019450, 8377999, 6613196240, 2701636, 9841522, 6294378524, 6062528193, 9734771, 92519050 #### [facility] (DEFAULT) [address] [place] [address] 59913 Urea nitrogen/Creatinine [Mass ratio] 18.9 mg/mg High 4.6-16.2 [facility] Comment on above: Performed By: #### 1 3375710, 6728402, 2298894, 2234464, 6770605931, 0368327, 9349855, 8574077858, 9555732249, 5184162, 11468830 #### [facility] (DEFAULT) [address] [place] [address] 98526 Ferritinon 08-24-2024 Ferritin [Mass/Vol] 29.7 ng/mL Normal 12.0-150.0 [facility] Comment on above: Performed By: #### 1 2717696, 0955635, 1270230, 6700512, 0787368634, 9289510, 0988221, 0518693837, 3265224178, 0746240, 66397542 #### [facility] (DEFAULT) [address] [place] [address] Free T4on 08-24-2024 Free T4 [Mass/Vol] 0.98 ng/dL Normal 0.61-1.12 [facility] Comment on above: Performed By: #### 1 8619134, 2453134, 2990033, 9843322, 5812921722, 9398854, 5470939, 3668700357, 5325102474, 9903509, 87780996 #### [facility] (DEFAULT) [address] [place] [address] HgbA1c Standardon 08-24-2024 Breakpoint Chem Normal [facility] Comment on above: Performed By: #### 1 2220798, 5580164, 8601940, 2531831, 4226571489, 5867225, 9322354, 1961239103, 0226865479, 0153262, 25133324 #### [facility] (DEFAULT) [address] [place] [address] .Hb 16.5 Invalid Interpretation Code [facility] Comment on above: Performed By: #### 1 4888639, 3933910, 0278800, 8529319, 6580294378, 7218515, 4229033, 9312158904, 8435603434, 2668189, 54964420 #### [facility] (DEFAULT) [address] [place] [address] .Hgb A1c 0.64 g/dL Invalid Interpretation Code [facility] Comment on above: Performed By: #### 1 7620886, 9797684, 2337384, 5638904, 0107981364, 6231875, 2644898, 1669306677, 4559981710, 0089896, 91728390 #### [facility] (DEFAULT) [address] [place] [address] Glucose [Mass/Vol] 117 mg/dL Invalid Interpretation Code [facility] Comment on above: Performed By: #### 1 9537615, 5267578, 5663498, 9615267, 8684214661, 8900424, 1478950, 0526843358, 6413536078, 8036678, 66958789 #### [facility] (DEFAULT) [address] [place] [address] HbA1c (Bld) [Mass fraction] 5.7 % Normal 4.6-6.2 [facility] Comment on above: Performed By: #### 1 3882642, 4060182, 6230979, 4414456, 9347872793, 5681886, 8391453, 7453278185, 8713493458, 7148415, 09924871 #### [facility] (DEFAULT) [address] [place] [address] Iron Profileon 08-24-2024 Iron [Mass/Vol] 87.0 ug/dL Normal 28.0-170.0 [facility] Comment on above: Performed By: #### 1 4620752, 2651298, 2874844, 6883001, 6887139903, 9898215, 7860931, 7188718535, 7236436467, 0423007, 58314992 #### [facility] (DEFAULT) [address] [place] [address] Iron Sat 22 % Normal 20-55 [facility] Comment on above: Performed By: #### 1 1619818, 6770701, 5972198, 3197453, 0320257477, 2503755, 1713595, 7477896383, 7964369093, 8542182, 22132641 #### [facility] (DEFAULT) [address] [place] [address] TIBC 391 mcg/dL Normal 250-400 [facility] Comment on above: Performed By: #### 1 5998965, 0963460, 8217458, 9143885, 2541103254, 3051667, 4022660, 3918281490, 0049064409, 3500360, 06741180 #### [facility] (DEFAULT) [address] [place] [address] 99965 Transferrin [Mass/Vol] 279.0 mg/dL Normal 192.0-382.0 [facility] Comment on above: Performed By: #### 1 4192368, 8278502, 8165539, 3169296, 0601911892, 8463803, 2586661, 6906753603, 0902711821, 9670349, 45853730 #### [facility] (DEFAULT) [address] [place] [address] 36098 TSHon 08-24-2024 TSH Qn 2.06 m[IU]/L Normal 0.45-5.33 [facility] Comment on above: Performed By: #### 1 5052580, 2472666, 0374942, 8489550, 8474914059, 9711607, 5436118, 1784450276, 6956425376, 8312626, 48178927 #### [facility] (DEFAULT) [address] [place] [address] 00056 Vit B12 Lvlon 08-24-2024 Vit B12 226 Normal 180-914 [facility] Comment on above: Performed By: #### 1 6069223, 7798074, 8338254, 9096112, 5252012626, 8628912, 5474299, 5674702452, 9086691042, 3068517, 04375616 #### [facility] (DEFAULT) [address] [place] [address] 79972 Vit D25 OHon 08-24-2024 Vitamin D 25 OH 16 ng/mL Low 30-100 [facility] Comment on above: Performed By: #### 1 2266497, 4411179, 0225565, 4491237, 6755178887, 4105757, 3534434, 9312200112, 0676875323, 4765992, 40986491 #### [facility] (DEFAULT) [address] [place] [address] 12108 XR Spine Thoracic 3 Viewson 08-24-2024 XR Spine Thoracic 3 Views EXAMINATION: XR Spine Thoracic 3 Views HISTORY: Dorsalgia, unspecified COMPARISON: No relevant comparison available. FINDINGS: BONES: Normal alignment with no acute fracture or spondylolisthesis. Mild diffuse degenerative spondylosis DISC SPACES: Normal. No significant disc height narrowing, subluxation, or endplate abnormality. PARASPINOUS: Negative. No paraspinous abnormality is seen. OTHER: Azygos fissure IMPRESSION: Mild degenerative changes Final Dictated by: Isai Gar MD Dictated DT/TM: 08/27/24 9:55 Signed (Electronic Signature): Isai Gra MD 08/27/24 9:55 am Technologist: MALCOLM,Mariana Normal [facility] Progress Note - Nurseon 04-21 Progress Note - Nurse Patient is requesting a refill of Celebrex. Send to [facility] in [place]. Refill sent at this time. [Electronically Signed on: 05/14/2024 13:48 EDT] Jossy Up LPN [Verified on: 05/14/2024 13:48 EDT] Jossy Up LPN [facility] Outside Recordson 03-12-2024 Outside Records [id number]# [id number] [facility] AChR Binding Abs, Serumon AChR Binding Abs, Serum <0.03 Normal 0.00-0.24 [facility] Comment on above: Result Comment: Nega tive: 0.00 - 0.24 Borderline: 0.25 - 0.40 Positive: >0.40 Performed at: - [facility] [id number] Manufacturing Manager: Nichelle Day MD, Phone: [phone] Performed By: #### A CHR BLOCK, ACHR BIND, ACHR MOD #### [facility] , AChR Blocking Abs, Serumon 0 01-17-2023 AChR Blocking Abs, Serum 20 % Normal 0-25 [facility] Comment on above: Result Comment: This test was developed and its performance characteristics determined by [facility]. It has not been cleared or approved by the Food and Drug Administration. Negative: 0 - 25 Borderline: 26 - 30 Positive: >30 Performed at: [address] [id number] Manufacturing Manager: Nichelle Day MD, Phone: [phone] PERFORMED BY: [place] [address] PATHOLOGIST BODY ART TECHNICIAN RED RICE M.D. Performed By: #### A CHR BLOCK, ACHR BIND, ACHR MOD #### [facility] , AChR Modulating Abs, Serumon 01-17-2023 AChR Modulating Abs, Serum 1 % Normal 0-45 [facility] Comment on above: Result Comment: This test was developed and its performance characteristics determined by [facility]. It has not been cleared or approved by the Food and Drug Administration. Interpretive Information: Negative: 0 - 45% Positive: > 45% No single value for AChR-modulating antibody should be used as a sole basis for diagnosis or response to therapy. Performed at: [address] [id number] Manufacturing Manager: Ncihelle Day MD, Phone: [phone] PERFORMED BY: [place] [address] PATHOLOGIST BODY ART TECHNICIAN RED RICE M.D. Performed By: #### A CHR BLOCK, ACHR BIND, ACHR MOD #### [facility] , Musk Antibody Teston 023 MuSK Antibodies <1.0 Normal . [facility] Comment on above: Result Comment: Refe rence Range: Negative: <1.0 Positive: 1.0 or higher A positive result, in the context of congruent clinical findings, confirms the diagnosis of autoimmune MuSK myasthenia gravis. COMMENTS: - Myasthenia gravis (MG) is caused by auto-antibodies against proteins of the neuromuscular junction. Most cases (about 90%) of generalized MG are anti- acetylcholine receptor (AChR) antibody-positive.(1) - Of generalized MG patients who lack anti-AChR antibodies (AChR-seronegative), about 40% are positive for Muscle- Specific Kinase (MuSK) antibody.(1,2) - Though a positive MuSK result is specific for the diagnosis of MuSK MG, a negative MuSK result does not rule out a MG diagnosis. - MuSK antibody levels have been shown to correlate with disease severity.(3) Serial measurements may be useful to follow treatment. References: 1. Vijaya-Inga S et al. J Autoimmunity 2014;52:90-100. 2. Ivonne VEGA et al. PNAS 2013;110(88);57135-46894. 3. Yessenia E et al. Neurology 2006;67:505-507. This test was developed and its performance characteristics determined by [facility]. It has not been cleared or approved by the Food and Drug Administration. Performed at: [facility] [address] [place] [id number] Manufacturing Manager: Chung Betts MD, Phone: [phone] PERFORMED BY: [place] [address] PATHOLOGIST BODY ART TECHNICIAN RED RICE M.D. Performed By: #### M USK #### [facility] , CBC AUTO DIFFon 04-22-2022 BASO # 0.0 103/ul Normal 0.0-0.1 [facility] Comment on above: Performed By: #### C BC #### [facility] [address] [place] [address] Dr. Leslie Estes Basophils/100 WBC (Bld) 0.2 % Normal 0.2-2.0 [facility] Comment on above: Performed By: #### C BC #### [facility] [address] [place] [address] Dr. Leslie Estes EO # 0.0 103/ul Normal 0.0-0.7 [facility] Comment on above: Performed By: #### C BC #### [facility] [address] [place] [address] Dr. Leslie Estes Eosinophils/100 WBC (Bld) 0.7 % Critically low 0.9-7.0 [facility] Comment on above: Performed By: #### C BC #### [facility] [address] [place] [address] Dr. Leslie Estes Erythrocyte distribution width (RBC) [Ratio] 14.1 % Normal 11.0-15.0 [facility] Comment on above: Performed By: #### C BC #### [facility] [address] [place] [address] Dr. Leslie Estes Hematocrit (Bld) [Volume fraction] 43.1 % Normal 36.0-48.0 [facility] Comment on above: Performed By: #### C BC #### [facility] [address] [place] [address] Dr. Leslie Estes Hemoglobin (Bld) [Mass/Vol] 13.5 g/dL Normal 12.0-16.0 [facility] Comment on above: Performed By: #### C BC #### [facility] [address] [place] [address] Dr. Leslie Estes IG # 0.01 10e3/ul Normal 0.00-0.03 [facility] Comment on above: Performed By: #### C BC #### [facility] [address] [place] [address] Dr. Leslie Estes IG % 0.2 % Normal 0.0-0.5 [facility] Comment on above: Performed By: #### C BC #### [facility] [address] [place] [address] Dr. Leslie Estes LYMPH # 1.0 103/ul Critically low 1.2-3.[address] [facility] Comment on above: Performed By: #### C BC #### [facility] [address] [place] [address] Dr. Leslie Estes Lymphocytes/100 WBC (Bld) 17.4 % Critically low 20.5-60.0 [facility] Comment on above: Performed By: #### C BC #### [facility] [address] [place] [address] Dr. Leslie Estes MANUAL DIFF REQ NO Normal [facility] Comment on above: Performed By: #### C BC #### [facility] [address] [place] [address] Dr. Leslie Estes MCH (RBC) [Entitic mass] 29.0 pg Normal 26.7-34.0 [facility] Comment on above: Performed By: #### C BC #### [facility] [address] [place] [address] Dr. Leslie Estes MCHC (RBC) [Mass/Vol] 31.3 g/dL Normal 29.9-35.2 [facility] Comment on above: Performed By: #### C BC #### [facility] [address] [place] [address] Dr. Leslie Estes MCV (RBC) [Entitic vol] 92.7 fL Normal 81.0-99.0 [facility] Comment on above: Performed By: #### C BC #### [facility] [address] [place] [address] Dr. Leslie Estes MONO # 0.8 103/ul Normal 0.3-0.8 [facility] Comment on above: Performed By: #### C BC #### [facility] [address] [place] [address] Dr. Leslie Estes Monocytes/100 WBC (Bld) 14.6 % Critically high 1.7-12.0 [facility] Comment on above: Performed By: #### C BC #### [facility] [address] [place] [address] Dr. Leslie Estes NEUT # 3.7 103/ul Normal 1.4-6.5 [facility] Comment on above: Performed By: #### C BC #### [facility] [address] [place] [address] Dr. Leslie Estes Neutrophils/100 WBC (Bld) 66.9 % Normal 43.0-75.0 [facility] [facility] Comment on above: Performed By: #### C BC #### [facility] [address] [place] [address] Dr. Leslie Estes Platelet mean volume (Bld) [Entitic vol] 12.1 fL Normal 9.5-13.5 [facility] Comment on above: Performed By: #### C BC #### [facility] [address] [address] [address] Leslie Estes PLT 197 103/ul Normal 150-450 [facility] Comment on above: Performed By: #### C BC #### [facility] [address] [address] [address] Leslie Estes RBC 4.65 106/ul Normal 4.20-5.40 [facility] Comment on above: Performed By: #### C BC #### [facility] [address] [address] [address] Leslie Estes WBC 5.6 103/ul Normal 4.0-11.0 [facility] Comment on above: Performed By: #### C BC #### [facility] [address] [place] [address] Dr. Leslie Estes LIPID PROFILEon 04-22-2022 CHOL-HDL RATIO NORM SEE BELOW Normal [facility] Comment on above: Result Comment: 3.3 - 4.4 LOW RISK 4.4 - 7.1 AVERAGE RISK 7.1 - 11.0 MODERATE RISK >11.0 HIGH RISK Performed By: #### L IPID, CMP, TSH #### [facility] [address] [place] [address] Dr. Leslie Estes Cholesterol [Mass/Vol] 143 mg/dL Normal <=200 [facility] Comment on above: Performed By: #### L IPID, CMP, TSH #### [facility] [address] [place] [address] Dr. Leslie Estes Cholesterol in HDL [Mass/Vol] 49 mg/dL Normal 40-60 [facility] Comment on above: Performed By: #### L IPID, CMP, TSH #### [facility] [address] [address] [address] Leslie Estes Cholesterol in LDL [Mass/Vol] 78.6 mg/dL Normal [facility] Comment on above: Performed By: #### L IPID, CMP, TSH #### [facility] [address] [address] [address] Leslie Estes Cholesterol.total/Ch olesterol in HDL [Mass ratio] 2.9 {ratio} Normal [facility] Comment on above: Performed By: #### L IPID, CMP, TSH #### [facility] [address] [address] [address] Leslie Estes HDL NORMAL > or = 60 mg/dl - LO W CARDIOVASCULAR RISK <40 mg/dl - HIGH CARDIOVASCULAR RISK Normal [facility] Comment on above: Performed By: #### L IPID, CMP, TSH #### [facility] [address] [address] [address] Leslie Estes LDL CALC NORMAL SEE BELOW Normal [facility] Comment on above: Result Comment: <100 mg/dl OPTIMAL 100 - 129 mg/dl NEAR OR ABOVE OPTIMAL 130 - 159 mg/dl BORDERLINE HIGH 160 - 189 mg/dl HIGH >190 mg/dl VERY HIGH Performed By: #### L IPID, CMP, TSH #### [facility] [address] [address] [address] Leslie Estes Triglyceride [Mass/Vol] 77 mg/dL Normal <=150 [facility] Comment on above: Performed By: #### L IPID, CMP, TSH #### [facility] [address] [address] [address] Leslie Estes VLDL CALC 15.4 mg/dL Normal [facility] Comment on above: Performed By: #### L IPID, CMP, TSH #### [facility] [address] [address] [address] Leslie Estes PROF 14(COMP METB)on 022 Albumin [Mass/Vol] 3.5 g/dL Normal 3.4-5.0 [facility] [place] [facility] Comment on above: Performed By: #### L IPID, CMP, TSH #### [facility] [address] [address] [address] Leslie Estes Albumin/Globulin [Mass ratio] 1.0 {ratio} Normal [facility] Comment on above: Performed By: #### L IPID, CMP, TSH #### [facility] [address] [address] [address] Leslie Estes ALP [Catalytic activity/Vol] 57 U/L Normal 46-116 [facility] Comment on above: Performed By: #### L IPID, CMP, TSH #### [facility] [address] [place] [address] Dr. Leslie Estes ALT [Catalytic activity/Vol] 24 U/L Normal 14-59 [facility] Comment on above: Performed By: #### L IPID, CMP, TSH #### [facility] [address] [address] [address] Leslie Estes Anion gap [Moles/Vol] 15.4 mmol/L Normal [facility] Comment on above: Performed By: #### L IPID, CMP, TSH #### [facility] [address] [place] [address] Dr. Leslie Estes AST [Catalytic activity/Vol] 30 U/L Normal 15-37 [facility] Comment on above: Performed By: #### L IPID, CMP, TSH #### [facility] [address] [place] [address] Dr. Leslie Estes Bilirubin [Mass/Vol] 0.3 mg/dL Normal 0.2-1.0 [facility] Comment on above: Performed By: #### L IPID, CMP, TSH #### [facility] [address] [place] [address] Dr. Leslie Estes Calcium [Mass/Vol] 8.7 mg/dL Normal 8.5-10.1 [facility] [place] [facility] Comment on above: Performed By: #### L IPID, CMP, TSH #### [facility] [address] [place] [address] Dr. Leslie Estes Chloride [Moles/Vol] 104 mmol/L Normal 98-107 [facility] Comment on above: Performed By: #### L IPID, CMP, TSH #### [facility] [address] [place] [address] Dr. Leslie Estes CO2 [Moles/Vol] 25.3 mmol/L Normal 21.0-32.0 [facility] Comment on above: Performed By: #### L IPID, CMP, TSH #### [facility] [address] [place] [address] Dr. Leslie Estes Creatinine [Mass/Vol] 0.90 mg/dL Normal 0.55-1.02 [facility] Comment on above: Performed By: #### L IPID, CMP, TSH #### [facility] [address] [address] [address] Leslie Estes EGFR-AF PALAUAN >60 Normal >=60 [facility] Comment on above: Performed By: #### L IPID, CMP, TSH #### [facility] [address] [address] [address] Leslie Estes EGFR-NON AF PALAUAN >60 Normal >=60 [facility] Comment on above: Performed By: #### L IPID, CMP, TSH #### [facility] [address] [address] [address] Leslie Estes Globulin (S) [Mass/Vol] 3.6 g/dL Normal [facility] Comment on above: Performed By: #### L IPID, CMP, TSH #### [facility] [address] [address] [address] Leslie Estes Glucose [Mass/Vol] 103 mg/dL Normal 74-106 [facility] Comment on above: Performed By: #### L IPID, CMP, TSH #### [facility] [address] [address] [address] Leslie Estes Potassium [Moles/Vol] 4.7 mmol/L Normal 3.5-5.1 [facility] Comment on above: Performed By: #### L IPID, CMP, TSH #### [facility] [address] [address] [address] Leslie Estes Protein [Mass/Vol] 7.1 g/dL Normal 6.4-8.2 [facility] Comment on above: Performed By: #### L IPID, CMP, TSH #### [facility] [address] [address] [address] Leslie Estes Sodium [Moles/Vol] 140 mmol/L Normal 136-145 [facility] Comment on above: Performed By: #### L IPID, CMP, TSH #### [facility] [address] [address] [address] Leslie Estes Urea nitrogen [Mass/Vol] 12.0 mg/dL Normal 7.0-18.0 [facility] Comment on above: Performed By: #### L IPID, CMP, TSH #### [facility] [address] [address] [address] Leslie Estes Urea nitrogen/Creatinine [Mass ratio] 13.3 mg/mg Normal [facility] Comment on above: Performed By: #### L IPID, CMP, TSH #### [facility] [address] [address] [address] Leslie Estes TSHon 04-22-2022 TSH 1.946 uIU/mL Normal 0.358-3.740 [facility] [place] [facility] Comment on above: Performed By: #### L IPID, CMP, TSH #### [facility] [address] [address] [address] Leslie Estes VITAMIN B12on 04-22-2022 Cobalamin (Vitamin B12) [Mass/Vol] 390.0 pg/mL Normal 193.0-986.0 [facility] Comment on above: Performed By: #### V ITB12 #### [facility] [address] [place] [address] Dr. Leslie Estes CULTURE STREP A SCREENon CULTURE STREP A SCREEN Throat Negative for Group A beta Streptococcus after 2 days Normal [facility] ([place]) Comment on above: Performed By: #### S #### [facility] [address] [place] [id number] Surendra Andrea MD, PhD [phone] RAPID STREP A ANTIGENon S. pyogenes Ag IA Ql (Unsp spec) Negative Negative [facility] Comment on above: A Strep A Screen razia l be added. Testing performed at [facility], [address] [place] [id number] [facility] - [address] [place] [address] Rapid Strep A Molecular Sanam naon 04-20-2022 S. pyogenes Ag IA Ql (Unsp spec) Negative Normal Negative [facility] ([place]) Comment on above: Order Comment: Testi ng performed at [facility], [address] [place] [address] Result Comment: A St rep A Screen will be added. Performed By: #### C GAS #### [facility] [address] [place] [address] Surendra Andrea MD, PhD [phone] CREATININEon 04-01-2022 Creatinine [Mass/Vol] 0.90 mg/dL Normal 0.55-1.02 [facility] Comment on above: Performed By: #### C DEQUAN #### [facility] [address] [address] [address] Leslie Estes EGFR-AF PALAUAN >60 Normal >=60 [facility] Comment on above: Performed By: #### C DEQUAN #### [facility] [address] [address] [address] Leslie Estes EGFR-NON AF PALAUAN >60 Normal >=60 [facility] Comment on above: Performed By: #### C DEQUAN #### [facility] [address] [address] [address] Leslie Estes MRI BRAIN WO W CONon 022 MRI BRAIN WO W CON EXAMINATION: MRI BRAIN WO W CON HISTORY: Nystagmus ; horizontal segments, chronic visual disturbance COMPARISON: No relevant comparison available. TECHNIQUE: A variety of imaging planes and parameters were utilized for visualization of suspected pathology. Images were performed without and with Dotarem contrast. FINDINGS: CEREBRUM: No edema, hemorrhage, mass, acute infarction, or inappropriate atrophy. CEREBELLUM: No edema, hemorrhage, mass, acute infarction, or inappropriate atrophy. BRAINSTEM: No edema, hemorrhage, mass, acute infarction, or inappropriate atrophy. CSF SPACES: Ventricles, cisterns, and sulci are appropriate for age. No hydrocephalus, subarachnoid hemorrhage, or mass. SKULL: No mass or other significant visible lesion. SINUSES: Limited views demonstrate no significant mucosal thickening or fluid. ORBITS: Limited views are unremarkable. OTHER: No abnormal meningeal or parenchymal enhancement. IMPRESSION: 1. No abnormal or suspicious findings to account for patient's symptoms. Electronically authenticated by: MIGEL TAFOYA Date: 2022-04-01 17:51 Normal [facility] Insurance Correspondence Off shun 02-21-2021 Insurance Correspondence Office [phone] [id number]# [email or web address]:[id number] Normal [facility] Coding Summary.on 02-05-2021 Coding Summary. CD:[id number] G h0bWw+PGhlYWQ+DE6EHWP rY05hwHUvgB1BY7mXFC5Y EIKQOABTQQ1HAJ9nbIY0Q CjrJ6AefmRs OkwbfJKpGU08JDn5KXC8f QodLMlqtW5ndEXxJ4s0Zb CyCA25oA76EOskAOFeOcB 3LjZpbjsgbWFy I8eqZyClaSHxQow+PHRhY mxlIHdpZHRoPScxMDAlJy CxuDilWE1sZb2tCJLnJXO vbGxhcHNlOiBj z0zzBQOvNVcwNA6hgEdhL 3FhoDV4COHsb4u8At88iM I+CITkJPA5lUtwYQcjd65 6PxNfs2eiTHA4 yWTuOUhpTMG3A23ph0H8B KMiYKIrHIU5fWP0kA2cvH cyrfchW4XpnMGqKfY4BIZ 5eBBtlE4haJtz iioziN1mWea+O27TCD5TX YPBWQ4QYyf4K0ApGklpzB I+OI76PAQuTS07fHJnfZI zk7vwbLt6JoDj YGAgKVI8sIfbUVwom4IuS JBjG77krHWjb2W5ADSmbW yfqOHdMwPmjMO6bL6iTBq bvaxzk9avmeyd Cxtiy5kdjg88jK33V70xR WoqJMZkMRY1KQRtUJNnyH vkxl7kjC1wNc2+QYlax8a hp6cjaPh1QcTq ENVxmeRcpOmsMQH5i5IqT j47X2SktLwef9GsMao3pe 02eJFes0C5yRB1QZfcPHT enK9gQEmuYsC7 VWCoLsNzgQ55dMGoEGyjH h7ckBcmtMzyNW1gNAQzgi roDLZtcE6zCYKqcTRwgQr xPO8dQGTvkqlf t827SbYpBPQ7WHIycCRiR 7UxsS1xWpHiWPTzTGUqD4 UmrYDrDPucK449IVmbNrK 3NUYhbqXkC7Jq OHSkfRlwDnT7a0S3Kl6Nv 2PdlofmHDE4LKfjWAO0Ct V4IqMfKlN2G5YpHip4SXW fgTkzSC0wK2Wq TIZtxbpldisytFH8QWMwU YYpoP26aFWuYPnwPx5gn7 M8u167NAWxGOLfrJ41Xk2 udDogMTBwdCBU bF4jzcnwr4uxwzmzTeUlP ALwWKg3KZs3JTEbhNdaXj ZkLBK5EaS4VXD8mLOraA4 brTyzsdmtaB9l Oyc+L34ciC4yBZV8DPB9t gmgGDQobjPtQO47JC46C9 RyPjwvdGFibGU+PGRpdiB ztSgnOP7eGkJb d7bho2KwMSahL7SkMQPgE OjwIiq0IORlJRN3sYP4pL 4hKKNkRNxrx2B0zGZ5A8P rpsIecz0yb1vm FBLtIFjcU59voLFpr9H2V PQmcTZ8NVOwqYxwUcBvhW 93Oyc+VOVwqIzkz6KqErp qk2gyd3druVc8 WkGbUODibwRmzRjdNGB8u 8YjKo47C90rDWclMQUaCH GwGVDhLIActQmamz7hyX2 wIi8+PGNvbCB3 cQR2fT9oOYAeIxL5RNqbU 480MyPmgWUfXcjjf3otb4 ywhUy4MmAfPWSbcnNfjVo sPYN7q6DoYg49 G15iQPzyFWDoPANbQLGxJ XXeyVauot5jrG8yOs2+PC 9jn8jlim98qL98hUH+PHR tHNV9zNtuLEjs GDOppL0gSWjiZbG2GBVwR vGqxL34fRBjQPqoLi4hxU jvoOznZL5eUHNqsyqyt81 1KfEsb1ywWNYy eJNtWGvyIAQ5Q64kg7T3S HMnTVOcVPY4wKI5iZ9kqW lnbjogbGVmdDsgdmVydGl gZHydCVhnW360 IHRvcDsnPlBhdGllbnQgT nCjKPy2Y6FvVes3BLFkdN yqCL7bbZGgUAqgQt7deBm rpBbtNV7wTJDc inyqr717UcJum2abGGMiy DJrWDyxHTD2H85qc5C9EJ MqZVQhTRJ9zYU2zL2faYk nbjogbGVmdDsg qlVoeEokTQmfBVhuN393G HRvcDsnPkJpcnRoIERhdG Q8TA27QP13qRSyw9U5iTV 0N1SaPBMswizy prlxhLE7GHCbHKTsqF26P b8ybYecNi5lWOAsQXS1BD AoeFXdD7HspQ3rNtUxEEB tKUFsX8EdkLDt EZkoL659QDevOqR8OFItk eYaV9HqRTBezAtaOrT5z3 D8Zu3UY4D6NP02IX15xWJ fo8Q7vEZ7H7Bi MBNxqteqontzbIQ3UIZjU MWrbP38Lo7uoQpzNq1yQB XeKDP8BDDbvQXmG3XweQ9 yOiAjMDAwMDAw X6YyfWCwULabH509QKvvJ oS9BSIffiSiT0VcBLCdnV fyQdX5q2A9Lk2PFEd0FR0 1QW91bEMev4U1 qRL2K3VzHIMpuhflhrbhl LH7ZXXsJTBhcQ82Xw7nsZ aeRt4iNXTxDJH9DXHfdUE jX8EugX6eMhHa UWNqMGVsC0FgxJPuMKfiJ 901GAgjUgR9OOPsrnGzL2 TvGEPmkNgpMnA3h1F9Ar5 CBEYwMU73QGE5 vNC0VM37XD76Z3OuVoawk GFibGU+PHRhYmxlIHdpZH RoPScxMDAlJyBzdHlsZT0 pAz9hAKNiGTMz nTxjaCEwMtVhk0ulEHGdZ FmxNT5xmHnjK3AahOU1SO Qmd2a4Id39W36eY5WgpMD +SJEqkFI5oQI0 tE1lZnXjDfE8JIwkZ057O wIvuQIuQachw8mci0swtG o6KhC3KJLsajOwhYmhMZW 1v2KzYf41F34d IHdpZHRoPSIxNSUiIHZhb Zougc5utF3uGx1+PGNvbC X5eUF2rB0pNiFaAqD6YZe fC541HxUmqFLx Juqcp2clr6pjkPg0DxLaK LWllpQtaXupVRU7v8DvHl 85L5OkyZnic4CfPmo0ut5 9pDCxa9A6xWP9 L5PbDNDizelfkFTycWgrG C8kQYGuqoniXXKfqT0zMD TmZ6e9YaNxOsV9YKtwO3J iduH5ANXlqDXk AMyuXWK4P55gg8A9HDGxQ YDyPOM8vAB8nF2ahFweyx ogbGVmdDsgdmVydGljYWw fKTmqQ326NOOj rBxuSENmfZ8uTCEchGPxi JyoDF8rIBCzkkhpTnmII3 JHZOLTJU0HXQqsmJW+PHR qIUI6yEsnGQwl HKNbjK6iWFPuV7f0LjPoV kQ9MThoB1MeRICrjsirOx 21kW7qMjNhCoS1SAxnA0R wvpL0XUCavWRt UTwoZBI8Y96ai0Q3BNExR OWlBVN0qYT0gM2lbSfemb ogbGVmdDsgdmVydGljYWw kORusT044IWMa gBmkPyT7KmKvKsE0ISr3X 7ZnEjd0CUYbjQgdJC5qeH XpQHmjKp0ciPdcoWlzXL5 wNTBpbjtwYWRk aE9qLYKudLDdfAhjRH3qE KPpnwccl663HmGpRZH6NA WmwAWfE9TwvL2qZpYoDHP uRZNbE2GxzHUq BHboG616EYntGxR7EPPif nQyR6SgZAUbkSplQwA6r3 V6Ap34RfDKITEzyexyaNC +JCFwWYW8pXdq GJqmEQNqzE9cNJXiW9i3Q bUxSiX8DHhrS7MlUAXoxc dgLh00nE5dIyEnGeJ5SKn iI3EgeqG0JQNw kSCyCIecWHX9K45gi7X2Y POaRSEdQIK2vXZ7sO4fsL lnbjogbGVmdDsgdmVydGl aUZbkCAmfF864 IHRvcDsnPkZlbWFsZTwvd GQ+UJCpZME9xQrlHMllCF AglH0dITZbR2y4FhJcFoF 3NJvsE2IuPIWn wpliZs51oF7eUtCqHaS2E DciU1KotjJ6LLIofUVcKA teGLT0J76wf9N0AOYqAFN yYHN9dGK7uS4c bGlnbjogbGVmdDsgdmVyd AgeFSzqBBitU070USHqxK drYyMtyW3zZEMbAWyioFK udDwvdGQ+PC90 wd37Y8ErCwuxArd3ZFHvU OG3vIS5nN3cTWOlMHqcm7 R4oCZ0U4KnjzBqxn5ly0f lFSQkJIefH30b eSYvq4Y2NYOpyEV0OVKlq VneZiVikR79Gif+PGNvbG eli2GyYcuwn4xjv7wcrWk 9IjMwJSIgdmFs oZrsNSI2l4LlUz28L99fM HdpZHRoPSIzMCUiIHZhbG vwoi9chW5cRe8+PGNvbCB 9yGF2mD3vAvAh HxV8RJsqY098HfQfaJUaU vnwu5ueq2ronZl6SdHxYF KxlmHtqYjyVHZ1f4JqXy6 5O4XfbKhkm1Qa Kjk4aw70dHDmb8C7tHG0L 3BhZGRpbmctbGVmdDogMC 1jIXHiedqpTMZkyC6zNRN dD0k3WaJpYwT8 CJnhN5KjvuR3QCOzlOVxW AKeaUKDgO5ijdyiz1ghgv abNiKrKNEgPGe2HCm3MHG saWduOiBsZWZ0 MoV8IPD3jQWmiW4pjHfak zhusE1cXrh+KXn3q4jmgN AeGG1tlUC3BE94BN40jFI cy9I0oWU4Z0Ps IAOttrbnbygqtZC0SCRoC NDqdD29Ci2ynXlbLi5nVY AqRJT0ROPdiERfY5AnhN4 yOiAjMDAwMDAw J8VruXDoWKoaJ680YYkkY iB5BUQctcNhM6PbLKIpwD abScF8c1T4Kd0IYP78OO2 7QE96rORjq9V6 tVS8M1FjPGRvrktdsgalw RB3VLLmMFDtyN40Uo3dkZ knSi2lSNJjQTU5WOShtGL uM6UoyW0sApJj EDVhFHNhD7UsvEYhKScbO 269QPxzYwL2NWAjkoIiM0 QtWJNfaPjlPmM3b0F0Oz5 BSb38XM59UW09 jJKrg2O2mQU4M6DoORRvh pxkmqaipIO5MCRyPZHobO 91Hk8bnXiwPb9fMGVeSTE 8GSLnrEOwE6Jz nB5eEzZqJRLyPEUhO1Wqt AKsYLysF190KEfaUkZ2ZV AbrdSeH8SmGOGkeFznHcN 2q4X7Yz6XEVps mai4Q8AnKywtyJO+PC90Y OUeMW67oQHieGLib4mnqP f1RjSeFFCxUWB0bEzwRAq bs5FgDZHaX21p bGFw (more content not included)... Normal [facility] Consultation Noteon 02-06-20 Consultation Note HOSPITAL REGULATIONS : ALL Positive Important Negative Findings Shall Be Recorded. Date of 01/23/2021 Consultation: Attending Physician: Consulting Chance Vasques M.D. Physician: FOLLOWUP VISIT CHIEF COMPLAINT: Neck and head pain. HISTORY OF PRESENT ILLNESS: A 75-year-old female with history of cervical spondylosis following up from her second set of diagnostic facet blocks to the C2-C3 and C3-C4 joints on 01/16/2021. The patient reports 100% initial relief lasting four to five hours directly following the procedure. The pain has returned to baseline. She rates the pain anywhere from a 0-10/10 on the visual analog scale. Turning her head and looking up exacerbates the pain. The pain radiates to the posterior aspect of the occipital region bilaterally. No apparent complications from the diagnostic blocks. She has now completed two sets of the diagnostic blocks each providing her 100% initial relief. The patient was able to turn her head and do normal typical movements of her neck without any significant pain during the period of time she experienced the relief. She is here to discuss further treatment options. The pain significantly impacts quality of life and activities of daily living. Past medical history, family history, surgical history, social history, medication list, allergies and a complete review of systems were obtained and reviewed. Pertinent findings are noted in the HISTORY OF PRESENT ILLNESS. PHYSICAL EXAMINATION: Constitutional: No acute distress, well nourished, well developed. Musculoskeletal: Injection sites are healed. There is distinct pain with cervical facet loading bilaterally. Neurologic: 5/5 strength throughout bilateral upper and lower extremities. Normal gait. ASSESSMENT/PLAN: A 75-year-old female with a history of cervical spondylosis with excellent short lived relief directly following the diagnostic facet blocks to the C2-C3 and C3-C4 facets bilaterally during which time she experienced significant improvement in mobility and function. The patient is an excellent candidate for radiofrequency ablation at the same levels to provide longer lasting relief. This is discussed with the patient in detail. She wishes to proceed. Follow up four weeks after the injections to assess response. We will proceed with the right side first considering that is more problematic for the patient. Risks, benefits and alternatives were reviewed with the patient including the increased risk of the procedure due to sedation. The patient voiced understanding and a willingness to proceed. Chance Vasques M.D. gls Dictated: 01/23/2021 #[id number] Typed: 01/30/2021 #[id number] cc: Chance Vasques M.D. *Evelyne Leggett M.D. [facility] Comment on above: Result Comment: Elec tronically Signed By: Layo DOHERTY, Chance Maguire\.br\Date and Time Signed: 02/05/21 08:27 EDT Coding Summary.on 01-30-2021 Coding Summary. [id number] G h0bWw+PGhlYWQ+OR7FWDK zW53emEDxiH5FS4fSDO6P NUZVJPQZJK3IAF6lbPB1L HqqC4NsfoOl MklarHKxPD67REb0SAU1m QwgXAaezS8niBJwK0x3Pu LcRT30lX67TRrwXBJnCjT 3LjZpbjsgbWFy J8hiFzOqsRZuIyw+PHRhY mxlIHdpZHRoPScxMDAlJy JlmQfrOY9tId5yRUKdONT vbGxhcHNlOiBj y0tfQBFvPSicWL7jkOfnU 8DabIP6CAAns9j6Pf66sB I+ZMJoMQB8gRajSXowu69 5GqRev5wyOTF3 sVQyUJdmQPB0M80cv5Z0M ZYpUMRwTEV9xUT9nH3sjC jqebbvX4UmxBUnQfG0PTP 6pZEmjJ7vuOdp hgcbqG6qKkc+C00QLI4QF MYPZO0GWmu1W9LvJzewpM I+SC88CXBzGH22xOPhdOR lq5pjiHp7AjUl OHUlTIT0vMgcLShlj9IaR GLmI33iwKAwj2L8XQTtdR xfzNZfKcHgtGG5zT1kRBv wzvshz2wgioxs Mlrsp9wspn49oK95G39cU RrtSXWjCIE1CORiXNGbjG kknc4tuM8gZq1+ZKzil1n nq6ejoCy1XbWy VDVfmcDcmZodFBQ0n0MkI l00Q7FwdScao6IsZkj5dv 34rJFoy9P0sCS9DAylYQF owS6gGIzcYvB8 CWAkIyFfyE47eAMxPUxeR r0zrEypnBzqWN3kZANwrl gpJEYqoL2yXEQidBCfwSe tJC9dPDSfehpd s611CoAxOMU6QNIpcQZpN 1ZfeZ0sRgQfAMZwVWOtE0 VdoWNyYGhrY182ZLqxDhF 8CKRioaTyB3Qz VPFncWzyWkS5i6C1Mn9Cp 7ZelwzuEDK5WCqtXKA9Ur WlDbJkSsK0K2LbDfm7JYU spYozFL4wN6Yg OMWvzbufqcnceCV2QLLjA BBotB60jCEaGGtiAg9to9 M1h506OBBxMJLvcQ73Xu4 udDogMTBwdCBU tI8byagpl8ptxeykZlOvV NCuEAv3RLj8LZSndRmwFn CuOUR5AxI2IZO5iKTreG8 cyIyhmhzvhK3o Oyc+S99ojA1mDCL5MNC4m uroSEPwdiCcTO45IS82O3 RyPjwvdGFibGU+PGRpdiB epSspTU8yXqEr e1onu3SxVEncF1WaAKUvW NfuQfr1QFAlNTF3eXL0cL 5vDWHjCUvjc6L6hCK9Y5S xxdZeeu7jp1vi WMQcUMjoB79vtBVyb9F9A XHewID0GDTmgXfnTxZlaB 93Oyc+OIEyuBpdf4FrPpw oz8efj0hakHd3 OcDpBNJmdzOcsMwqODW1q 6ZrGs59B25iLYylPGBlTM LnGPBzUKOfkZsuui3uhS3 wIi8+PGNvbCB3 kCL7xM2jLJQhGnO0XCiqJ 133MnYidXUgSvtmv0kcp8 mopYg9EjKlZFXlxtXxqBo qPUS9m8PjKf90 L14vRYstGFLyUDZlZSQqK RKxuPokmi3ueV0aGp9+PC 6xz7yjxm29dQ35nZB+PHR eJIB8sQglAJyz BRLceU6rHImoFnU2HXJvV cGcvQ84nALxHTifTd0feM bowFvoZM1cNKWxiqmpr99 0OfIim9ikEHEr xWPmIWenERS4R82ie7V2N AQeZJOmEGW1zJA4sE2yoK lnbjogbGVmdDsgdmVydGl oOKohZPqpL118 IHRvcDsnPlBhdGllbnQgT eJoPEo0X1FbQqy1HYLfuJ njKN8eeXMcQDvrXp5azGf ceSagMB1iUNMa vimxs216VuRel2pfYQXug XFqZDhjRZJ8A40go5Y1KD ZeXXNlGXJ5rYS4fB3bgRn nbjogbGVmdDsg ayFunQbzQWkhUDtdW390I HRvcDsnPkJpcnRoIERhdG E6WS80MC95cLWpr6H4gQQ 2W3PvCNEpsird ypnczAM0ANSoQEJinL15Z m1leSurGm0yOIWrTYD7NI MbpHRzD8BfrX0qDoUkUYN jVUYtI6HoyRBn XDmyN772GXurEgW7XDQfp nGeF9EmBJNdmSmdGzT2x5 H8Cm3HM0I8YP49TS45cUN ip7S6oPV4F6Rx DQZdjclwqpldbES7LTQtM XSteM96Lv0hfKaiVf1wQC ArPWR1QCQrrQPnW2QrmW3 yOiAjMDAwMDAw O0QtkWGfDBcqB759MLzfZ xC0ANGnwcClB7XbLSWccP dqXmA4u5K8Jv2MOXo9JM2 6KL95tSLwt2X2 qTO9O9XfXLUojgxaqlbzc MK8IMMaULRueJ19Nx7isP pwHt4mBEYmMMS8RXArrXI yJ0KrsK6yPkQp TETuZPZzU9EuxKBrHRngC 763DMwcMwL5QHPfbeZqX3 XqRTGovXciSiL0e2M0Cv0 VSWMyNX05QII7 xTF4MH45LV12X6YzVmsfg GFibGU+PHRhYmxlIHdpZH RoPScxMDAlJyBzdHlsZT0 dBz9tUQBqBOKt tFcedBWtJsFdn1ceFHMxR DnzRP4scWugY0EjvEW3NY Hif8z8Qz39G38hE6SlkIH +QYDisGT5jVQ6 bP6yNaRaTeC8HWhjM203A oNqhOPuTlvpy0zkd5lgnY g0BvY1XQNfteCoaJvmEAQ 7t1GuWj85G12v IHdpZHRoPSIxNSUiIHZhb Afzex4zaK2hUc5+PGNvbC M2qLW7sQ0oVqWeWaN8ATr xA211CyEywKGa Ggedg4wbh1jggMf8CeUmY KLvxrWeoVuiKKP1g0FaTk 46W4TdfYhdk5KcWnv8ut3 7pJGxq4I7xNF7 O8QgYNQassymfMQddUerP B5qAKKawhexQWHfwI7sPX KoO0r2ObGsTnR2WBxmN6N nfpT0REKxvALt BYaoWHK0Q07vk2P6WOXuT HGfBTJ3iNE6mA4htLczyl ogbGVmdDsgdmVydGljYWw tQZysY832UMQl zZhqRMEkwZ8sVZMaeWPlz RnyNI6nPALxkqfgMuxJZ5 MBAUXEBL2DOIejfCG+PHR eSBU5oXjlLFek VDTcfJ0eAORfF0m1NhDdN pR8KSziB8BoMKYulxkrTp 92wR1oWeHoFxX2EAbkV0H jywL3GKGklAKx QNukPXR9Q95mr8R6BLQuH UFfKGB9aFS4vG3vfLeuzg ogbGVmdDsgdmVydGljYWw xDRxuH459OMVz fOhmKyP8MzBjPiM6SFb9I 4HhKsj2KRRzwNytYS7tqM MeVJffIc1ztKpmkFmqPB5 wNTBpbjtwYWRk cA8cZYUuaZKgoNdyBV3oS GPimxwwg025XuUzZDR4TX DnlWJtV1GnjL9nGwPfWBP lZRDiF6IloKUy KMenU371VOgqBbE7GNKjl vMwT4OqEFKaoXfaSnE9o4 Q2Bb04XeEGWTLouppapVE +HTLqGOH0tRcd OMyxZAHjtV0rNPWjW1f4T nHlQdI3CJpdO8ClQWOoft ytXu38aP8jEdBhUoI1OXe xS9LpjuZ7JTPd wNYiUFzgAGS8N00tz2R1M AKbIKSyCOO9gEF4uV1mxX lnbjogbGVmdDsgdmVydGl pZGfyIHirW258 IHRvcDsnPkZlbWFsZTwvd GQ+UGImIHP5mTxbVJogMA TioH7oPRWhS5m0VuIzOxD 2PNuiB3DbZEAc aqpwRe91nZ1gRePcIyD5Y AqzU5ZezlE5VGNyjDMmYT umTIX7N87hk4X6GJMnUEX qGWR1cDL2gR2b bGlnbjogbGVmdDsgdmVyd HaaJBmmFOidI038VKIcoV cqUiWnjU7nZYQqAInfcAK udDwvdGQ+PC90 il44G5OqJrwmRee3WYPtX OH8dFG4rC9zOZPzCAogu8 B0eFC0A0OvfhIqxu7fn5r jRWItJWnlB56a eAPtx4J5IJWyxAK3MRBfw UqtPsRpaG88Oon+PGNvbG nzt8QaAnxdv1jvu0crlLl 9IjMwJSIgdmFs oCttBPM1c9ZrOn99H64dK HdpZHRoPSIzMCUiIHZhbG bxyo9bkH8sJq9+PGNvbCB 9lZX4gS5jGcSn HpL4AHkqS457YuAceHSjM thot6hbt7quzJc7UaFnUY ZphuOejGhtYFJ4a8SlPl5 4B5RfrJpyp6Uj Apm8wc47aRVpz2Z7tAX4O 3BhZGRpbmctbGVmdDogMC 5aROFzisleTGFcfY4aPHU dG6z0WyEkLvN5 MNsuA8GvskI9JPKwtENlS EIsaVNNyW7pclals3lqbx egOqLeEBEyQSa2RLq8TMR saWduOiBsZWZ0 OcU1OHN3nSTrcR7eyYdba oxiyR6yHsg+WRt3a6ijjS HlKU2ptVT6EH75FB12qCL oy5U8yYI5M1Jy ELEfffuuffiavUY4FLXwD OZdbD99Bd9uhCwhXt1hUQ AhVMX7XNXbyYRsR7IiiR9 yOiAjMDAwMDAw H1IrlRQuLRnoJ557MEepO pB6JLVylhPmF3EeMVCnxQ hkYyC3a1Y9Om3PMS88NL5 2GR80yFOxm2R0 wRU6L1KmAFHvlrceqyzzb MO9SVBfEBJupL54Jn0dyT yfTi3dFZAiJBP7EHNulGZ yG7OmxS5fAyXr EFCuPQOiR8RrcXTlIIonD 827RVjgYmT8UMOsxzLtD2 ZrGTFzhYwxUvR1i8G4Ft5 ZDf95LO62VE00 mXLap5T8vQU5D2ZdCLGlj wpovupxnDD8AUTpVBTiaE 79Sf8bcLnzBe2hLIVoPMR 4ITZmcICgX8Gu gZ3pWoZcPHSmWDDlZ8Ock XIoZOeqX672YGmjLvF6YC AjmhLtV7SoXZXyqOaqPrC 7m7J6Xj5YFIyz guc3K7JoZzydiRX+PC90Y ADvSA62gXFttRHgs7watG x2TnOzTSZwXWC0vIsmVQh uj8VlBRDaJ30p bGFw (more content not included)... Normal [facility] Consent for Treatmenton Consent for Treatment [id number]# 1.00CD:127 Normal [facility] Office/Clinic Note-Physician on 01-23-2021 Office/Clinic Note-Physician [id number] #1.00CD:127 Normal [facility] Patient Correspondenceon Patient Correspondence [id number] #1.00CD:127 Normal [facility] Patient History Officeon Patient History Office [id number] #1.00CD:127 Normal [facility] Progress Note-Physicianon Progress Note-Physician Patient: MARLENE CLIFFORD Age: 75 years Sex: Female : 1945 Associated Diagnoses: None Author: Jovanni Sparks Jr, DO Postoperative Information Post Operative Note: Post Anesthesia Care Unit. Anesthetic utilized: Monitored anesthesia care. Health Status Allergies: Allergic Reactions (Selected) Severity Not Documented Latex- Rash. Vicodin- Lightheadedness. Problem list: All Problems Hearing deficit / SNOMED CT 57183726 / Confirmed Physical Examination Vital Signs 01/16/2021 10:24 EDT Temperature Oral 36.6 DegC Heart Rate Monitored 67 bpm Respiratory Rate 16 br/min Systolic Blood Pressure 159 mmHg HI Diastolic Blood Pressure 77 mmHg Mean Arterial Pressure, Monitered 104 mmHg SpO2 97 % 01/16/2021 10:17 EDT Heart Rate Monitored 73 bpm Respiratory Rate 14 br/min Systolic Blood Pressure 124 mmHg Diastolic Blood Pressure 62 mmHg SpO2 97 % 01/16/2021 9:43 EDT Temperature Oral 36.3 DegC Heart Rate Monitored 71 bpm Respiratory Rate 12 br/min LOW Systolic Blood Pressure 161 mmHg HI Diastolic Blood Pressure 80 mmHg Mean Arterial Pressure, Monitered 107 mmHg SpO2 97 % Vital Signs (last 24 hrs) Last Charted Temp Oral 36.6 DegC (JAN 16 10:24) SBP H 159mmHg (JAN 16 10:24) DBP 77 mmHg (JAN 16 10:24) SpO2 97 % (JAN 16 10:24) Height 168 cm (JAN 16 09:43) Documented vital signs Pain assessment: Pain Assessment 01/16/2021 10:24 EDT Preliminary Pain Scale 2 01/16/2021 10:23 EDT Preliminary Pain Scale 2 Primary Pain Location Neck Patient Preferred Pain Tool Numeric rating 01/16/2021 9:43 EDT Preliminary Pain Scale 6 . General: Alert and oriented, No acute distress. Respiratory: Lungs are clear to auscultation. Cardiovascular: Normal rate, Regular rhythm. Neurologic: Normal sensory. Review / Management Condition: Stable. Assessment Anesthetic outcome No anesthetic complications noted. Adequate pain relief. TOLERATING PO INTAKE. voiding w/o diff.. No Complaint of nausea and vomiting. Plan Transfer/ Discharge: Condition stable. Normal [facility] Comment on above: Result Comment: Elec tronically Signed By: Jovanni Sparks Jr, DO\.br\Date and Time Signed: 01/23/21 08:30 EDT Progress Note-Physician Patient: MARLENE CLIFFORD Age: 75 years Sex: Female : 1945 Associated Diagnoses: None Author: Jovanni Sparks Jr, DO Preoperative Information Anesthesia history: Patient history: denies difficulty with anesthesia. Family history: Denies any history of anesthesia complications.. Re-evaluation prior to induction: Initial evaluation reviewed: No significant change. Review of Systems Respiratory: NO RECENT CHANGES IN RESPIRATORY STATUS. Cardiovascular: STABLE, NO CHANGES IN CARDIAC STATUS. Neurologic: Per pain clinic assessment. Health Status Allergies: Allergic Reactions (Selected) Severity Not Documented Latex- Rash. Vicodin- Lightheadedness. Current medications: (Selected) Documented Medications Documented Advil: as needed, Refills(s) 0 Turmeric: Daily, Refill(s) 0 Tylenol: as needed, Refills(s) 0 biotin: Daily, Refills(s) 0 calcium (as calcium citrate) 200 mg oral tablet: Daily, Refills(s) 0 Problem list: All Problems Hearing deficit / SNOMED CT 45227504 / Confirmed Histories Past Medical History: No active or resolved past medical history items have been selected or recorded., SMOKES TOBACCO Family History: No family history items have been selected or recorded. Procedure history: Injection of facet joint using fluoroscopic guidance ([id number]) on 11/07/2020 at 75 Years. Comments: 11/20/2020 11:33 EDT - Day LAAHansa C2/C3+C3/C4 100% relief Tonsillectomy (775690992). Bone spur of left foot (0011109168). Dilation and curettage (64483480). Neuroma of foot (1712417218). Social History Social & Psychosocial Habits Alcohol 10/04/2020 Risk Assessment: Low Risk 10/04/2020 Use: Current Frequency: 1-2 times per month Substance Abuse 10/04/2020 Risk Assessment: No Risk Tobacco 10/04/2020 Risk Assessment: No Risk . Physical Examination Pain assessment: PER PAIN CLINIC ASSESSMENT. General: Alert and oriented. Airway: Neck: Supple. HENT: Normocephalic. Respiratory: ADEQUATE AIR EXCHANGE. Cardiovascular: Adequate circulation and perfusion.. Gastrointestinal: Benign, nontender.. Integumentary: Warm, Orting. Neurologic: PER PAIN CLINIC ASSESSMENT. Plan [place] [employer] (ASA) physical status classification: Class II. Anesthetic Preoperative Plan Anesthesia: Monitored anesthesia care. Anesthetic plan, risks, benefits, and alternatives discussed with the patient and/or family. Patient verbalized understanding. Informed consent was given. Communication: face to face with Pt educated on the importance of smoking cessation. [facility] Comment on above: Result Comment: Elec tronically Signed By: Bridger Bartholomew DO, Jovanni Peña\.br\Date and Time Signed: 01/23/21 07:58 EDT Consent for Anesthesiaon Consent for Anesthesia [id number]#1 .00CD:127 [facility] Consent for Procedure/Surger yon 01-16-2021 Consent for Procedure/Surgery [id number]#1 .00CD:127 [facility] Consent for Treatmenton 12-20 Consent for Treatment [id number]#1 .00CD:127 [facility] Discharge Instructionson Discharge Instructions [id number]#1 .00CD:127 [facility] IntraOperative Documentson 0 01-16-2021 IntraOperative Documents [id number]#1 .00CD:127 [facility] Main OR Intraoperative Recor don 01-16-2021 Main OR Intraoperative Record IntraOp Document Type FTPM Summary Primary Physician: Chance Vasques MD Finalized Date/Time: 01/16/21 10:14:39 Pt. Name: MARLENE CLIFFORD /Sex: 1945 Female Med Rec #: [id number] Physician: Chance Vasques MD Financial #: [id number] Pt. Type: P Room/Bed: / Admit/Disch: 01/16/21 09:06:17 - Institution: Case Times FTPM Entry 1 Patient Times In Room 01/16/21 10:01:00 Out Room 01/16/21 10:14:00 Procedure Times Start 01/16/21 10:05:00 Stop 01/16/21 10:12:00 Anesthesia Times Start 01/16/21 10:01:00 Stop 01/16/21 10:14:00 Last Modified By: Keaton DICKEY, Marlene 01/16/21 10:14:30 Case Attendance FTPM Entry 1 Entry 2 Entry 3 Case Attendee Rob GRIMALDO, Cipriano Vasques MD, Jovanni German Jr, DO Role Performed Anesthesiologist Surgeon - Primary Anesthesiologist of Referral Coordinator Record Time In 01/16/21 10:01:00 01/16/21 10:01:00 01/16/21 10:01:00 Time Out 01/16/21 10:14:00 01/16/21 10:14:00 01/16/21 10:14:00 Procedure MEDIAL BRANCH MEDIAL BRANCH MEDIAL BRANCH BLOCK(Bilateral) BLOCK(Bilateral) BLOCK(Bilateral) Comments Last Modified By: Keaton DICKEY, Malrene 01/16/21 Keaton DICKEY, Marlene 01/16/21 Keaton DICKEY, Marlene 01/16/21 10:14:31 10:14:31 10:14:31 Entry 4 Entry 5 Entry 6 Case Attendee Scar DICKEY, Chance Pugh RN, Marlene MORAN RLukasz Role Performed Scrub - Primary Die Casting Supervisor - Primary Director Of Safety Time In 01/16/21 10:01:00 01/16/21 10:01:00 01/16/21 10:01:00 Time Out 01/16/21 10:14:00 01/16/21 10:14:00 01/16/21 10:14:00 Procedure MEDIAL BRANCH MEDIAL BRANCH MEDIAL BRANCH BLOCK(Bilateral) BLOCK(Bilateral) BLOCK(Bilateral) Comments Last Modified By: Keaton DICKEY, Marlene 01/16/21 Marlene Pugh RN 01/16/21 Marlene Pugh RN 01/16/21 10:14:31 10:14:31 10:14:31 Perioperative Protocols FTPM Pre-Care Text: Implements protective measures prior to operative or invasive procedure, confirms identity before the operative or invasive procedure, verifies operative procedure, surgical site, and laterality Entry 1 Procedure(s) MEDIAL BRANCH Patient Identity Birthday, ID Band BLOCK(Bilateral) Verified (select at Check, Patient least 2): Participation Consents / H and P Anesthesia Consent, Operative Site Present Verified HandP, Surgery/Procedure Marking Verified Consent Surgical Site Yes Laterality Verified Yes Verified Procedure Verified Yes Correct Patient Yes Position Verified Availability Equipment, Medication, Prep Dry Yes Verified (If X-ray Applicable) PreOp Antibiotic No Time Out Marlene Pugh RN, Given Participants Scar DICKEY, Chance Stephenson, Layo DOHERTY, Chance Maguire, Rob GRIMALDO, Cipriano Medina, Mary Soler, Lukasz Parekh Time Out Complete 01/16/21 10:02:00 Outcomes Met? Yes Last Modified By: Marlene Pugh RN 01/16/21 10:02:33 Post-Care Text: The patient is free from signs and symptoms of injury caused by extraneous objects Allergy Information FTPM Pre-Care Text: Verifies allergies Entry 1 Allergies Reviewed? Yes Allergies Reviewed Self/Patient With Outcomes Met? Yes Last Modified By: Marlene Pugh RN 01/16/21 09:16:53 Post-Care Text: The patient received appropriate medication(s) safely administered during the perioperative period Surgical Procedures FTPM Entry 1 Procedure Description Procedure MEDIAL BRANCH BLOCK Modifiers Bilateral Surgeon Description B C2/3, C3/4 MBB Primary Procedure Yes Primary Surgeon Chance Vasques MD Start 01/16/21 10:05:00 Stop 01/16/21 10:12:00 Anesthesia Type MAC Surgical Service Pain Management Wound Class 1 - Clean Last Modified By: Marlene Pugh RN 01/16/21 10:14:34 General Case Data FTPM Pre-Care Text: Classifies surgical wound, implements aseptic technique, initiates traffic control Entry 1 Case Information OR Pain Proc Room Case Level Level 2 Wound Class 1 - Clean Specialty Pain Management ASA Class 2 Preop Diagnosis M47.812 Postop Same As Preop Yes Postop Diagnosis M47.812 Outcomes Met? Yes Last Modified By: Marlene Pugh RN 01/16/21 10:14:34 Post-Care Text: The patient is free from signs and symptoms of infection Skin Assessment (Pre Procedure) FTPM Pre-Care Text: Implements protective measures to prevent skin/ tissue injury due to thermal or mechanical sources Evaluates for signs and symptoms of physical injury to skin and tissue Entry 1 Skin Integrity Intact, Orting, Warm, and Skin Abnormality No Dry Outcomes Met? Yes Last Modified By: Marlene Pugh RN 01/16/21 09:17:35 Post-Care Text: The patient is free from signs and symptoms of injury caused by extraneous objects Patient Positioning FTPM Pre-Care Text: Identifies physical alterations that require additional precautions for procedure-specific positioning, verifies presence of prosthetics or corrective devices, positions the patient, evaluates the patient for signs and symptoms of injury as a result of positioning Entry 1 Procedure MEDIAL BRANCH Body Position Prone BLOCK(Bilateral) Feet Uncros (more content not included)... Normal [facility] Main OR Preoperative Recordo n 01-16-2021 Main OR Preoperative Record Holding Area Document Type FTPM Summary Primary Physician: Chance Vasques MD Finalized Date/Time: 01/16/21 09:39:38 Pt. Name: MARLENE CLIFFORD/Sex: 1945 Female Med Rec #: [id number] Physician: Chance Vasques MD Financial #: [id number] Pt. Type: P Room/Bed: / Admit/Disch: 01/16/21 09:06:17 - Institution: Case Times Holding FTPM Pre-Care Text: Verifies consent for planned procedure, identifies individual values and wishes concerning care, includes family members in perioperative teaching Secures patient's records' belongings, and valuables, maintains patient's dignity and privacy, and maintains patient confidentiality Entry 1 In Holding 01/16/21 09:35:00 Outcomes Met? Yes Last Modified By: Karen Estrada RN 01/16/21 09:35:43 Post-Care Text: The patient participates in decisions affecting his or her perioperative plan of care The patient's right to privacy is maintained Surgery Checklist FTPM Entry 1 Patient Birthday, ID Band Procedure History and Physical, Identification: Check, Patient Verification: Surgical Consent, With Participation Patient NPO after Midnight: Yes Date/Time: 01/16/21 09:35:00 Personal Items: Cataract Lens Implant, Personal Items Pt. wearing glasses and Jewelry Comment: one ring. She has a history of bilateral cataract lens implants. Complaints of Pain: Yes Pain Comment: 12/28 headache Operative Site Yes Marked By: Dr. Vasques Marking: Location: bilateral C2-C4 Availability Equipment, X-Ray Verified: Does Patient Smoke No Patient states Yes Comment - Adult friend-Jovana postop adult Supervision supervision available Case Cancelled in No Holding Area see comments below for reason Last Modified By: Karen Estrada RN 01/16/21 09:39:32 Finalized By: Karen Estrada RN Document Signatures Signed By: Karen Estrada RN 01/16/21 09:39 Karen Estrada RN 01/16/21 09:39 Normal [facility] Operative Reporton Operative Report Patient: JODY CLIFFORD Age: 75 years Sex: Female : 1945 Associated Diagnoses: None Author: Layo DOHERTY, Chance Maguire Procedure Procedure: Cervical Facet Medial Branch Blocks to the Bilateral C2/3 and C3/4 facet joints Diagnosis: Cervical Spondylosis without myelopathy Anesthesia: MAC MAC anesthesia is medically necessary for the procedure due to the procedure requiring the patient to remain in a painful position. Patient was responsive throughout the procedure. The increased risk of the procedure with use of sedation was discussed with the patient. The patient wished to proceed. The patient was identified in the pre-op area. The procedure, including risks benefits and alternatives was discussed with the patient. The patient agreed to proceed. Informed consent was obtained and the site(s) marked. The patient was brought to the procedure room and placed in the prone position with the neck flexed. Time out was taken. The cervical region was exposed, prepped, and draped in the usual sterile fashion. Under fluoroscopic guidance the anatomical locations of the medial branch (3rd occipital) nerves to the Bilateral C2/3 and C3/4 facet joints were identified. The skin and subcutaneous tissues along the needle trajectories were anesthetized with 5 mL of 2% lidocaine through a 25G needle. 22-gauge spinal needles were then advanced under intermittent AP and lateral fluoroscopic guidance to the appropriate anatomical locations. The needles were aspirated and found to be negative for blood and CSF. 0.1 mL of Isovue was injected at each level and showed appropriate spread without vascular uptake. Following reconfirmation of negative aspiration, 0.3 mL of 0.5% bupivacaine was injected at each level. The needles were removed and bandages were applied. The patient was brought to the recovery room in stable condition. The patient was monitored for an appropriate period of time and then discharged home. Post-procedure instructions were provided to the patient. No apparent complications. Epidural injection procedure Physical Exam: vital signs Vital Signs 01/16/2021 9:43 EDT Temperature Oral 36.3 DegC Heart Rate Monitored 71 bpm Respiratory Rate 12 br/min LOW Systolic Blood Pressure 161 mmHg HI Diastolic Blood Pressure 80 mmHg Mean Arterial Pressure, Monitered 107 mmHg SpO2 97 % . Normal [facility] Comment on above: Result Comment: Elec tronically Signed By: Layo DOHERTY, Chance Maguire\.br\Date and Time Signed: 01/16/21 10:12 EDT Insurance Correspondence Off iceon 12-13-2020 Insurance Correspondence Office [id number]#3 .00CD:127 Normal [facility] Patient Correspondenceon Patient Correspondence [id number]#1. 00CD:127 Normal [facility] Consultation Noteon 12-06-19 Consultation Note HOSPITAL REGULATIONS : ALL Positive Important Negative Findings Shall Be Recorded. Date of 11/20/2020 Consultation: Attending Physician: Consulting Chance Vasques M.D. Physician: CHIEF COMPLAINT: Neck pain and right-sided occipital pain. HISTORY: A 75 year old female with a history of cervical spondylosis and occipital neuralgia following up from bilateral C2-3 and C3-4 facet blocks on 11/07/2020. She reports 100% relief of her neck and head pain for three days. Pain has returned to baseline. No apparent complications. She rates her pain in the head as a 4/10 and the neck a 10/10, worse with turning her head. The patient is here to discuss further treatment options. Turning her head, looking up exacerbates her pain. No radiation of the pain into the upper extremities. Denies red flag symptoms. Past medical history, family history, surgical history, social history, medication list, allergies and complete review of systems were obtained and reviewed. Pertinent findings are noted in the history of present illness. PHYSICAL EXAMINATION: Constitutional: No acute distress. Well nourished, well developed. Musculoskeletal: Injection sites are healed. Distinct pain with cervical facet loading. There is mild allodynia in the right occipital region. Neurologic: 5/5 strength throughout bilateral upper extremities. Normal gait. ASSESSMENT/PLAN: A 75 year old female with significant relief directly following cervical facet blocks. I suggested to the patient we proceed with a second set of blocks to confirm etiology of pain. If the patient experiences significant relief again from the injections we can proceed then with radiofrequency ablation at the same levels to provide long-lasting relief. Risks, benefits and alternatives were reviewed with the patient. She wishes to proceed. Follow up one week after the next set of diagnostic blocks to assess response. Consider occipital nerve block on the right side if head pain persists. The patient agrees with plan of care. Chance Vasques M.D. lkr Dictated: 11/20/2020 #[id number] Typed: 11/23/2020 #[id number] cc: Chance Vasques M.D. *Evelyne Leggett M.D. [facility] Comment on above: Result Comment: Elec tronically Signed By: Layo DOHERTY, Chance Maguire\.br\Date and Time Signed: 12/05/20 12:23 EDT Coding Summary.on 11-27-2020 Coding Summary. CD:[id number]:[id number] G h0bWw+PGhlYWQ+TN7HXLD hN76baKGtsU9CT5dLIR2Q KFVHXFZRTD0SKK2gzIN3V WoaB4ShmpYo FkxrqMHfYW98WXv8WLK8d SqsYWspcR9pjTMnF8g2Tp HyQJ68vQ56MRulAAMvFzQ 3LjZpbjsgbWFy K3duHiYwvCDxCgr+PHRhY mxlIHdpZHRoPScxMDAlJy TqkJhdMZ0bVj0oEFWcIKE vbGxhcHNlOiBj j8juWCLmLBzvBS0yeEehP 4ZbfHX3IVHtk3a5Es27wZ I+HJEpIKB8qWydIGrlj27 3EoBys9nbMPA8 uTNaIKepMDA3V98cv7X6B MYsKEBlZVF1vPY9dH6cvX ksluksL6UrnZVwVbW6PIH 4lPXqsJ1acDqo qhnthG4hFob+F11NKI4WD OSYRN0IIhl6Z2RzGyqckW I+ZR46FICeJX12yHLhhBA uq8ezcNf8XaTf KGCtNEN8yYmkDSbbv7UvX MPaI13ukXQba3E3UPNduY ocwVFoVtEsgVD0gY5uYGi kjzhpp0apywun Ihnpv6cxzo96yI68U10hW ZsfCFElXYS9QEHgBCHgtB fhen1auI0vNx2+NBuob6l jv0jgaAz1SiLy INPbowBzaYexIUJ8n8MnV z10W6UwaKucd7QvNui0ee 33dPYxz5O1tMC1KHraDGF utG5bKYgnWwP2 RZXbFtPptQ12nTToWQqdK t0gfYsttCqoXI7zFOXqzp lpIZGhuB0cEKOkwUUnaRs mWB7dRFLbvnkn n512GqNxGGG0COUmfJKvL 5PvfU2sTgAoGEDwALBiJ1 BcjCVoWArgI203MAgoKkO 6QARjznQrH0Ig AXLmtUouRfT5o2M6Dx1Hb 3VaeytpSUR2OQfzDLI7Nm ZyQuAlUvW4V3XlFus4XWV jaBkqRV5qQ1Kj TBTxrgimdaaexJK4JBVsW POcnQ54qUTxSKbeZw8mz6 C3z066ABTpTNBkfB98Gb3 udDogMTBwdCBU uK6gdaref8lkturnWrXxZ RUzUQi1BXj4RQNbyVfdVd CzGXK3XkN4YRU9dDHlaM9 irYnhxtbjzP9h Oyc+Z89kqU1iIWM9DDI7s uaaVXUpdsHyCN86YM53E7 RyPjwvdGFibGU+PGRpdiB tkAddJP2wPrQd b7zjn5MnVOvnE6YmWQAqT MrkPoh7SNQpGLJ9jQW8fB 0zRRFhEImck2Y8dIV7H5I mqtEwlm3es8qq NKWtHUfxC77sdNZlt8P4M TEksOJ8UMSasEwvRhWneI 93Oyc+BXBppMsaj2YdXns cl8psq5repSd1 SuQqKCTsygDrgKxgRKA5c 4EoVz65T18dTKmdHITlIC SpFKXcXXHuoUnubk1arQ5 wIi8+PGNvbCB3 uAE1iN7aLCFgCaB6IJbrQ 898SsWpfYFmSuded6rei8 kukNy8VwVjUADbxxJqmYx gXJT3m7XvTr10 Y43kOUumIMLgPJOaORCkO GYrbNaian2emJ9oOv8+PC 8ts0uhgg05oY68nTU+PHR dUAW1mUffGYic GXJqfA1oSNtoVlI1HXLhL iLbyP51tORgGLfbBa8xlS wnnAgjXD4mEXNqlmoky69 4HkHyv9spWDYe gUElPArhAAI8V40sz2B6B DOfAZBzBHO1xXF2bT3ijF lnbjogbGVmdDsgdmVydGl sPWzvUFdhE229 IHRvcDsnPlBhdGllbnQgT nKnIFd3H6IfTby8CKKlrZ azQB3qrUGcZAeoAa9lwXd csMhdQD9vGYWz vuoxe182TvAca5dkKVLqx HOuBKsoSOS0H58od8I6TF AnAGFcRUE8rFJ9nZ0qlKg nbjogbGVmdDsg hcJswKbcQCcvPScjI010G HRvcDsnPkJpcnRoIERhdG Y9HG57KW04xOOjr6A7pUD 0L8BeVYWniryw xirvsAI6BWUfAJQtkP42H b1jdWqjRu1mFKNcTGT7UU YqdRToX2NqbG2tJhYoKZX kVTNoP1HqvSKx WBlqI725QMpmVvA2LFTzm gWtG5FwUPIraFswNxX6r7 K6Mc4QI6D9UF46VS07pWL zb9A7xRF1Z0Uh LKHbauphlpkmxSB3TVAzI LUpfV86Xf7gyTkcPp8oHT WdJSA8VCMrhNCwY0OhvD2 yOiAjMDAwMDAw K6YilDUjWDogI219VTywU bL9NKZzefOsA8KrWXGzbO kvBvA2v1B4Oa3DIJn6VM8 6HA28oZHgj7O9 vSW7M1UsYPWmazltblinj ZY0TGTpZFRatO50Dy1tnN jgYb7vAAHqSWD6RJMnqAT qA4TqzK6rXrXp YTWoPQKbV4NjcOHyFDzkI 196MIdtWwC6BCXqcbJwX4 LfUPMvoUzcQbL7m0T5Fx8 ARMNlMW73WTB2 lMR7TU31TJ17W8PeUwizt GFibGU+PHRhYmxlIHdpZH RoPScxMDAlJyBzdHlsZT0 bTc5zAQIiBCEq hGnfmYGnFlRvb3jkDBUgN AodYE5ktXayI6TggBY3UH Bmy4k7Wz11P02xN3YvmYP +KCGacHI4xEI9 hT5rCgSlJrT3IXtiD666Y wOqeIAeKizev5zjd3noqX y5AxD2TZFfafNkuCqhEWR 5p1SfLn60D84x IHdpZHRoPSIxNSUiIHZhb Pztfz6bjN4uTu4+PGNvbC G1iXM4jJ4cHtGeBtA8KBm zU317GyDahCAb Cbcat2lzk4bqoRw1DvGyG OXhibWtzWxwQSG6k0VnIh 44J1PdeGxut4LlOci1sa6 8gWQxj2N0zAT9 T4QxUAEfikejxVRgnCgpG S2vTTAxuncaMEYklY4yRA UiZ2t3OsNzLrZ8TSuuF8J dnaN1CROqjRXi XUplPAT6W16qm5X1OBUvY PZyIGX8bTI5jM7pbGoxek ogbGVmdDsgdmVydGljYWw uUQvlR848KZVf tHoeKFHwkC3yOQGlaVQor VayHX0kAJVxzibfBiaIB1 PXCSSCKG2SGYrmnFD+PHR uMBN6mJkxLBlu EPQnhG1mNXYxI7c0SnVfP zD2YIdfA3InUXKquamrGu 55wO9lHyAvAyX2ZGiqE5U cbeR8NLUtyJHe RKwqSMU6W50gx5I9OADzC CGpWNG6aIN7kK2szKgntu ogbGVmdDsgdmVydGljYWw eOHtrO831YNLb zNlmPiI4UwOfTfK2UVi1M 5EaPfo0BVAfhXzpCN4vlW QhMZvnKq9naKwksMswOK0 wNTBpbjtwYWRk kK1nTYBguEBjxOczZV6lV IZjligqc440PyHcBLJ8UC OgaOUpL8WhoI1uYmVaYLV qSIHtG2BrlXUv LJazY762FMyeVwY5PANln jUgR7OwNOKzeLqvOaP6i3 L3Da03SmMQMLAmzkkavMU +DKDeFRC1bDxy NAiqOOFojX0fJEGaQ1t6T aToRwH0JGnvW4RsBCVvri dsBh00bB1tGsQoCzJ7HQc wC9OhsgC8TSUc rKEyLZucBHP4B88ai4W4S RCiDVVrYDM6bZC2wJ1ilZ lnbjogbGVmdDsgdmVydGl gIGzrORajD259 IHRvcDsnPkZlbWFsZTwvd GQ+GHHeAWC7lRjfZYiqUT ZvtO7qHBTjE6h7LdQxLzM 2XBvlX4XwGZYj kognJx29wD0qGvXuUuS0N SdgH3FzliR3JEOiwLBdRN lmKRC6O96ag8C2AHDhKBG pWKF3iWD1vO2n bGlnbjogbGVmdDsgdmVyd SwrFJetBLtrF643SPPqdH lvEjWdkQ9iNNDbCVqboHN udDwvdGQ+PC90 gd49T4DwCwyeUnd2DHXpD EV4tGO4rK6qFBFuWJftu0 U3rJT9C5VyxiJniv9ei2v pWTSbKOjaM23q iXYxz5V0APSqfIR2NDApd CezHsPniA48Nov+PGNvbG hsg4YsDlmup5owm8xzrVz 9IjMwJSIgdmFs tVnaYHV9b3PxMx50N74bV HdpZHRoPSIzMCUiIHZhbG yzre4zgK4xJq7+PGNvbCB 7rTK2dM9sXnXk SmQ1GHhfM562IvIshTKpP csrt2agi1aphPl4XdRvVJ EhbgHglWuhZPZ4e8OvWd1 9Z0NrcPrsb3Vw Fuu0nw80vAOnp7D0nUI1I 3BhZGRpbmctbGVmdDogMC 7xPCYopgmwRWFgvI2rJNG oP4k3PhSwJbR0 GNnlK5JsyqR5VKPqzFCkT KYayBORvF7nmiuia1dsaq cmDhZaOSYvNIi9WTn5XTM saWduOiBsZWZ0 LwJ9TVI8tIAsuN5kdTgds rgscN5aNwb+JMj8z5dgyJ QnUV7ioVY4WM14NA21uEF rj1W9gWP3M6Bv ISGszvokriwbcSD3HHRyM LFryX22To1bpUbhOt1lEH AvRTJ7HEQnfKYwV8HzhZ0 yOiAjMDAwMDAw W6OibPPwIUqcU495XUblJ lK0OMUmelAsV7VgEFJskM bfRaT5j9Q9Id2KKL88WZ7 3OB00tJCud9B7 iOS6I8RxWVDnoxqjeseju WZ8GAKlDXVikQ41Af4smX knKr4wCKYlFBY4YOKukNW vQ8CiwW0qXxVc DPSvXETuB0BboZOjFXpbS 418NZfwUdR0SPFgtsDtD8 GrTYHqyTzoPoG9c1U6Oh4 BQf17RP31QU98 yRFyl3K6rNV7B2BoFCAjt tqayzczmLO2PAVaUZRsnX 11Gs5eoGdnZo1zDOAdTYP 5KOEztSJhY7Gd nK2qBzUpCFMqCYKfH6Kte ZTlLSduM164KFodMlP7AH ZjkqKuV6YrHBRhjYueOtO 2j7X6Te7IILgm ika5N6DtAkushMZ+PC90Y ILxBS58jEXjoKNmh5ycbJ o1FuVuGBCzXMB8lTtiKJm ea3MgEOMmQ32q bGFw (more content not included)... Normal [facility] Consent for Treatmenton Consent for Treatment [id number]# 1.00CD:127 Normal [facility] Office/Clinic Note-Physician on 11-20-2020 Office/Clinic Note-Physician [id number]#1 .00CD:127 Normal [facility] Patient History Officeon Patient History Office [id number]#1 .00CD:127 Normal [facility] Coding Summary.on 11-13-2020 Coding Summary. CD:[id number] G h0bWw+PGhlYWQ+FY8ZEJZ zY22isOIayW8ZR3nFJI1B UHHDCAVHRZ5IJT8ezUC1T FicJ3XddeAp NbvqjHDyPL89ZZo4UHG6b FupXBeamU6avWLnA5a0Yz TaVA58cB96UJxfPIKzEcI 3LjZpbjsgbWFy G2fjXhNjtLCsXzw+PHRhY mxlIHdpZHRoPScxMDAlJy QncFppBG4cIj0rGNZsGKQ vbGxhcHNlOiBj i5svUAIdPVgaBO0fsEluX 3PewCP9DIKrn6f9Qh49pC I+GOFiUTU5wHayHZlhc46 1EwAjl3dgROX1 yMDkVUwaZGN3B75gi4V6E LQrCPPlIIB0pUJ9dD8jnW bzugzfD0DoqDFlNrE2LCP 0gLPoeD6mhKla ajrzaC5uHhp+B75XTU6MI BPAOE9FQto8B2DeBzpvhS I+UW92OHIfOV31aDXmtYR zn9fzuAb6PxEa PZGxTLQ4cGnpWHkne2OlO RCaM94gzUWbs0Z0TQCdpI lkmZNnCdNkzTE6rR5xZHg dynart7udafrq Pklka2hslu63nN38R88hX ZwuZOUcSVO6MGFkOZDyfK ifoe8bpL1aJt8+BHivg2u pc2scoBf0HiZn IRLtrfNlsPtjSLF4x3JmA k94G6GebUexk9WgAsv2ad 02eYFje2B4aZZ1SMnoXMW etX7dUMoeZhS8 NFOlIjDibV52qOWoPRqtN w4plAxyeGajGZ0eVGAamb iqATOegU2hLYGlaHLtxBs zBT0hKMBroguj c734ClOsDSZ0WUQhfNOtH 6BluW1vQbPhCNEhUVNgM7 QnoVJwMMgzG744ZMhnEhY 1WNPtuoExL8Ej ZDAgiKycQnK3n4F1Em2Tr 0RumavvGYV5NQezUOH4Ia S1FiOlEwS5Y1XuEoz4IPA wjMreUT9sP6Ml BWHwcufddzawlEY2BEHmT LLdaU02cSKyOEepPr4oh8 X5s507JRUwSXYzhA80Kp0 udDogMTBwdCBU tS0zfutjf4liapfwTjFtF QIqYQn0DCx6WPEgaAbhYn VgXRW9UmX1HGX4jKXcbX9 cdBuobjtxxG1d Oyc+J25joE6nIEU9XZB5z afbWTCtykDuMZ07PV33M9 RyPjwvdGFibGU+PGRpdiB pfRvrSI6wMuPc v4ztd3LsWBbrW8DyTZUvC EczMia4WAXrOJU3hBF8gK 0aFZFgABckg4X2jKN7L6M bzmFjqf9ts5kw LUUdYFayZ84keOFbg4C3O WBpxPS2SJMpfFiuKnTfmQ 93Oyc+RWLvsIhen8BvCla iv8sud6qezXm5 EpYbXWQokcNzoEtkNQR2l 2FbUv62P20yNRrpINIrRG RbWRZmRHYgqKumhv0xeL7 wIi8+PGNvbCB3 zXT4qE8bUDLhKhQ8ODhgO 102JlQyrTDsRdmqe8dpg5 hesSn1WtTmCZAytnPtyCz mSPT9a9JkUv84 Z58mEQgtMCPxQPEtMVXtG ECefJamrq8ejQ8qCi7+PC 9pr9pgkb63eC50wZK+PHR uDPE9bJraJXmz KXUwwN9tLYkrIgI1JGXvD sQaeQ72sXLtQWpzFq7xbC kscDjtSC4aYMQunofqu59 8GrMgn1ueKTVm bCQdGSewZAH9B07ke2G5P NJbELRdOZD3kHQ7mZ8ptL lnbjogbGVmdDsgdmVydGl tXIfxJXkjL257 IHRvcDsnPlBhdGllbnQgT hXdNHc9Z6SpNkw8SZMmbD kaWA8ygPYbKZaiHv4awEx aaRlvFK9aLQYa rwedx089CyWdx5qsNLNbf PAsBPhbIYH9J07ra7Q8DT GpNDWfLQD9tHI2mS1vmAj nbjogbGVmdDsg lkAujCywOZjjZVgzG972M HRvcDsnPkJpcnRoIERhdG Z4YX65AW43mSYfr9T5zEX 4H2EuQLCrpqdv pwcalXI8HOKuHGEkxU49E y4klJayTz0jHMEuNSK3HX UwiDSsG7LnyA8wOaCbEEF qTZLbT3PccTTt WQypE044JTtsYzN9TCAnc oGtK7NbDRRsqFveOdV2b1 T3Zu5MN3J5FO73QF66aVX pj2X0oZO0U7Us CBKemktutzycbFV8WVWgB ENlnW16Xu7wcHoqUw6lFN WhVCI2HNPptZAvW1NujW0 yOiAjMDAwMDAw H7YvvKOqLTpvF221SMniZ dS6XIWxwpAmZ1EvALHnmB utKxM0j2S8To1DFTk5HV4 0ES53hMZwl8W4 cUA5O6PoQRWhxszrxkyiq JK5YILuLKJamN37Mt2ugY cfZn4yNDQaMNN9XONjaXW pO2HfzQ0pBpTr ZHMhYEAtB7QwaGIdEShpQ 442WWjhHmK5FAXfaeXyY6 FfJYGzlFfaFaF5n8G0Zd7 LQEJrBK02SPB5 vQK8TQ35ZP13Z3XaLrioa GFibGU+PHRhYmxlIHdpZH RoPScxMDAlJyBzdHlsZT0 mZn5iUAAmZJEl rLuowIHyYaPsm2tjJUKzP FgxHZ3qcTuyF2VnvVI5IB Zeb9z2Va34I25sZ4XkpKN +OHCtcWZ9wOY7 cY6qEzTiJwJ2HQpkF509Q cWkpZNoOnzac0vxb6nkgD y3XtO9GZGiaeSyzVetFFJ 5v0DjJy80J94z IHdpZHRoPSIxNSUiIHZhb Vmmci2sfD1rCh0+PGNvbC B8zUB0fS3gYfAkNdJ2ZXf bH385OjMdcDWa Zbfsu1tcy1emrHq5CgXjX WWsniNleKngVNB5n7KePx 20Z9AkqQgei9KdMlq9mn6 5hNVix1H1kCH8 I4GsSCRbpljyqYRpuQisT L3uKEEmgfscBLQtxT4zVK ZjP8d5HxBsFsZ7RYizM7N oksH9GWFluEQg KRpjWKB7D84oo1K0IPYxR XSjWAD9uQB9wK7prGakdo ogbGVmdDsgdmVydGljYWw qCGkgH712MQHe uRbiQNWqsM1uNZEurDJgk AevPA7rEHOrujjhNfdZM1 VGGABCFM5JJUejnAU+PHR gGPQ2mXdbQTsm PFFhyK0wNDYzX3b1CvVkO kK2CGfnY9EsAVQmligvSo 46lE1kHgWuCqG8HAysX0T aneM2HHCghHJh PKduXGW7L74mw0E1BIQzJ WNsSTT6sMO8gB7hrTshbr ogbGVmdDsgdmVydGljYWw kRLpzL340WLJp mTyaXzL4GaShLaD1VNp5V 1BmGbt5FHRgxYgwVR6mxS EmDWxrUk9tpZtggYezZC9 wNTBpbjtwYWRk eR5wXGUeaEMxhLzpMU2cF ONthpllb246YlTqFRK4DC CxjCVdJ5QasD2aBmQnDFK xGRInG7TlbXBy GNcxG917OMxrEaX5TXWkn hNoU2XtGSSrgSdjRnF6y2 Z7Kx89BaJNTCOkbebwtUX +SGPcRNC3iNts ABfsMVTjsF6tYJPuJ6y2R nToZsV6XMoeC6UeZSUhce yjEw67jP7eTqPwBoQ7WQl wX2RczdJ4FMLe uGImDGblTSV7Y48tx3T1S CZcDMAeYBF1xZC8aA3stA lnbjogbGVmdDsgdmVydGl pCOudEDgqA596 IHRvcDsnPkZlbWFsZTwvd GQ+AWKsGOS2wGkiZUhwKB FuhE9jKAIuF4d4RrPwGzO 7GBpkT4ZkMXYf tyerAp14gW1eOjNmAaA0C BhgH1GzecY2SFAkhEWdML xtDJF7Q10zh9S5JHSvMRU zUOO7kNR9zP7j bGlnbjogbGVmdDsgdmVyd SxdFMecUYkeU516BFGbqL ozRhShiL6cTDTqTPoziXF udDwvdGQ+PC90 xv08N7OeHacmVzv5CAOhZ KT2tZA1cE2yEHFpTFwly8 F7qJB3B4DkgkBxte8px1h hWAYoNKxlD95l aVYqg4E9CNFynLQ8GRGte AcdWrDavT21Jsc+PGNvbG zls0XaMkbjp9pos2lziHi 9IjMwJSIgdmFs eQzpALA9p4DmMw26U81wO HdpZHRoPSIzMCUiIHZhbG urgt1itB7aWd4+PGNvbCB 2eKU9bS1vSfUf DkA0QMfeX731EtHyyUJyA kpxg9imo4pvoEk8VlIaZX PjhnMdoVpqNSC8n5LqPa7 9U2RcxKyte8Aj Rjy4xl06bWEca8X5aFL8M 3BhZGRpbmctbGVmdDogMC 6dRZUfykjvOLHcuY5dQLP aN0c1DoSlAhN4 AOofS4HatwK3UHXtfRDlB DCmfZKAhJ6xgyxgz4fbmc qnSgLsVNFhJIx6ZCb3WPU saWduOiBsZWZ0 PcK0QQC0dMZvcP7htWuih hxrzT8mXxm+XVe6q4pxuP LmAT9rkMA3KX94QP81vRH dj9Z3zXE5K5Sv IZEqonpdelmgiCT2MBWnW FNluT18Za2pnRwwSo9qZY GzOQW8AEYooNVbJ8XxhF1 yOiAjMDAwMDAw Y7AafANzFTvcD092MAmsP eU9JKZgfsHtA2QwNBRksS xqXlY0k9O5Um7VXX31RP5 8AT34qSMod3A0 sUL4V2JbXBNzmpkqawjpm PU6OUDsCIIeeX61Hl9nzP pyGa3gVMAvVQB0TIQjeBM mC1CxyE1eDzCn GJRmWHSuP6UlaRKmDGhjM 468QMtbLdU6YYTizjYhQ7 OtDFCayDjxJjM4s4C0Se5 REe49HF94TM91 jSVxv2Q0jLY3X5KuNPStq phsxnemjNM9JIVuLTLqiA 63Yp6hwBzwMx0nSEGgOTL 7XHMfuJOlP5Vm kS2dUlTqLMLuIHQhD4Bvc IAgCVmmD098WSbeBcC7KR LyikQyR4ZcMQZlwXevOmL 2q5S3Hi9MBTof nbi8Y2NfOkxmbZS+PC90Y PIkED86zWPkkJYbu8lxjZ c3FqUbLWJdDVG3oYuqBPc sy1YfTQUnA81b bGFw (more content not included)... [facility] Consent for Procedure/Surger yon 11-07-2020 Consent for Procedure/Surgery [id number]#1. 00CD:127 [facility] Consent for Treatmenton 10-20 Consent for Treatment [id number]# 1.00CD:127 [facility] Discharge Instructionson Discharge Instructions [id number]#1. 00CD:127 [facility] IntraOperative Documentson 0 11-07-2020 IntraOperative Documents [id number]#1. 00CD:127 [facility] Main OR Intraoperative Recor don 11-07-2020 Main OR Intraoperative Record IntraOp Document Type FTPM Summary Primary Physician: Chance Vasques MD Finalized Date/Time: 11/07/20 13:08:04 Pt. Name: MARLENE CLIFFORD/Sex: 1945 Female Med Rec #: [id number] Physician: Chance Vasques MD Financial #: [id number] Pt. Type: P Room/Bed: / Admit/Disch: 11/07/20 11:52:57 - Institution: Case Times FTPM Entry 1 Patient Times In Room 11/07/20 12:57:00 Out Room 11/07/20 13:07:00 Procedure Times Start 11/07/20 13:00:00 Stop 11/07/20 13:07:00 Anesthesia Times Last Modified By: Sary Rico RN 11/07/20 13:07:57 Case Attendance FTPM Entry 1 Entry 2 Entry 3 Case Attendee Layo DOHERTY, Chance Rico RN, Sary MORAN R, Lukasz Parekh Role Performed Surgeon - Primary Die Casting Supervisor - Primary Director Of Safety Time In 11/07/20 12:57:00 11/07/20 12:57:00 11/07/20 12:57:00 Time Out 11/07/20 13:07:00 11/07/20 13:07:00 11/07/20 13:07:00 Procedure MEDIAL BRANCH MEDIAL BRANCH MEDIAL BRANCH BLOCK(Bilateral) BLOCK(Bilateral) BLOCK(Bilateral) Comments Last Modified By: Sary Rico RN, RN, Sary Cowan RN 11/07/20 13:07:58 11/07/20 13:07:58 11/07/20 13:07:58 Entry 4 Case Attendee Chance Abbott RN Role Performed Scrub - Primary Time In 11/07/20 12:57:00 Time Out 11/07/20 13:07:00 Procedure MEDIAL BRANCH BLOCK(Bilateral) Comments Last Modified By: Sary Rico RN 11/07/20 13:07:58 Perioperative Protocols FTPM Pre-Care Text: Implements protective measures prior to operative or invasive procedure, confirms identity before the operative or invasive procedure, verifies operative procedure, surgical site, and laterality Entry 1 Procedure(s) MEDIAL BRANCH Patient Identity Birthday, ID Band BLOCK(Bilateral) Verified (select at Check, Patient least 2): Participation Consents / H and P HandP, Surgery/Procedure Operative Site Present Verified Consent Marking Verified Surgical Site Yes Laterality Verified Yes Verified Procedure Verified Yes Correct Patient Yes Position Verified Availability Equipment, Medication, Prep Dry Yes Verified (If X-ray Applicable) PreOp Antibiotic No Time Out Jacky DICKEY, Sary Alvarez, Given Participants Scar DICKEY, Chance Stephenson, Layo DOHERTY, Mary Hicks RLukasz Time Out Complete 11/07/20 12:57:00 Outcomes Met? Yes Last Modified By: Sary Rico RN 11/07/20 12:59:04 Post-Care Text: The patient is free from signs and symptoms of injury caused by extraneous objects Allergy Information FTPM Pre-Care Text: Verifies allergies Entry 1 Allergies Reviewed? Yes Allergies Reviewed Self/Patient With Outcomes Met? Yes Last Modified By: Sary Rico RN 11/07/20 12:22:07 Post-Care Text: The patient received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 #[id number] To: Evelyne Leggett MD Sent: February 14, 2024 8:48:19 AM CDT Subject: Medication Management Due: February 15, 2024 12:57:28 AM CDT On Hold Pending Signature Drug: furosemide (furosemide 20 mg oral tablet), take 1 tablet by mouth once daily if needed for LEG SWELLING Quantity: 20 tab(s) Days Supply: 20 Refills: 0 Substitutions Allowed Notes from Pharmacy: Dispensed Drug: furosemide (furosemide 20 mg oral tablet), take 1 tablet by mouth once daily if needed for LEG SWELLING Quantity: 20 tab(s) Days Supply: 20 Refills: 0 Substitutions Allowed Notes from Pharmacy: [facility] Medication management note 01-26-2024 Note Date & Type Note Facility 01-26-2024 Note Entered by Maru Hooper on January 26, 2024 08:12:02 EDT From: Maru Hooper To: [facility] #[id number] Sent: 01/26/2024 08:12:02 EDT Subject: Medication Management Submitted: Complete:furosemide (furosemide 20 mg oral tablet) Signed by Maru Hooper 01/26/2024 08:12:00 EDT Approved furosemide (FUROSEMIDE 20 MG TABLET) take 1 tablet by mouth once daily if needed for LEG SWELLING Qty: 20 tab(s) Days Supply: 20 Refills: 0 Substitutions Allowed Route To Pharmacy - [facility] #[id number] Signed by Maru Hooper From: [facility] #[id number] To: Evelyne Leggett MD Sent: January 24, 2024 8:48:31 AM CDT Subject: Medication Management Due: January 25, 2024 12:31:11 AM CDT On Hold Pending Signature Drug: furosemide (furosemide 20 mg oral tablet), 1 tab(s) Oral Daily,PRN:leg swelling Quantity: 20 tab(s) Days Supply: 20 Refills: 0 Substitutions Allowed Notes from Pharmacy: Dispensed Drug: furosemide (furosemide 20 mg oral tablet), take 1 tablet by mouth once daily if needed for LEG SWELLING Quantity: 20 tab(s) Days Supply: 20 Refills: 0 Substitutions Allowed Notes from Pharmacy: [facility] History of Present illness Narrative 04-20-2022 Meek Bernal, DO - 04/20/2022 7:15 PM Cassie Trinidad RN - 04/20/2022 7:15 PM Cassie Trinidad RN - 04/20/2022 7:15 PM EDT Note Date & Type Note Facility 04-20-2022 History of Presen t illness Narrative [facility] [address] [place] [address] CHIEF COMPLAINT Chief Complaint Patient presents with Sore Throat Pt c/o sore throat starting last night. Generalized Body Aches HPI Marlene Clifford is a 77 y.o. female with sore throat which started last night. Pain with swallowing, no difficulty swallowing. Patient also reports some generalized body aches. She denies any fever. She has had an occasional nonproductive cough. She reports some mild bilateral ear pain more described as pressure. She denies any significant nasal or sinus congestion. No vomiting or diarrhea. No rash. 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 REVIEW OF SYSTEMS Remainder of the ROS have been obtained and the pertinent positive and negatives are above. See HPI for further details. Review of systems otherwise negative. PAST MEDICAL HISTORY No past medical history on file. FAMILY HISTORY History reviewed. No pertinent family history. SOCIAL HISTORY Social History Socioeconomic History Marital status: Single SURGICAL HISTORY No past surgical history on file. CURRENT MEDICATIONS Current Outpatient Medications Medication Sig pravastatin 40 MG tablet Take 40 mg by mouth daily. ALLERGIES Not on File PHYSICAL EXAM VITAL SIGNS: BP 131/62 (BP Location: Right arm, BP Position: Sitting) Pulse 70 Temp 97.5 F (36.4 C) (Temporal) Resp 18 SpO2 95% SpO2 Readings from Last 1 Encounters: 04/20/22 95% Constitutional: Well developed, Well nourished, No acute distress, Non-toxic appearance. HENT: Normocephalic, Atraumatic, Bilateral external ears normal, Nose normal. Oropharynx moist without erythema, No oral exudates, Tympanic membranes ear canals appear normal bilaterally. Eyes: Conjunctiva normal, No discharge. Lymphatic: Palpable anterior cervical of adenopathy. Cardiovascular: Regular, normal heart rate, Normal rhythm, No murmur, No rubs, No gallops. Thorax & Lungs: Equal breath sounds bilateral, No respiratory distress, No rhonchi rales or wheezing, No chest tenderness. Skin: Warm, Dry, No erythema, No rash. Extremities: No edema, No cyanosis,No erythema. LABS/RADIOLOGY/PROCEDURES/MEDICATIONS Results for orders placed or performed in visit on 04/20/22 RAPID STREP A ANTIGEN Result Value Ref Range RAPID GROUP A STREP Negative Negative No orders to display COURSE & MEDICAL DECISION MAKING Pertinent Labs & Imaging studies reviewed. (See chart for details) Rapid strep negative. Patient with cough sore throat. Discussed likely viral cause and supportive/conservative care measures. Given patient's symptoms, physical exam, history I have suspicion for COVID-19, I discussed this as a potential cause of the patient's illness/symptoms however, patient refused testing. I recommend isolation/quarantine at home and recommended patient return to work/school per CDC recommendations I recommend using [id number] medications for symptomatic management. I recommend the patient follow-up in the emergency department if the patient develops any difficulty breathing shortness of breath, increased respiratory effort, increased respiratory noises or signs of declining respiratory status. The patient has been adequately risk stratified and using reasonable practice norms, it is felt that the patient is stable for discharge. The nurses and I have discussed the need for prompt follow up as a visit to the is not a substitute for seeing a primary care physician/specialist. The patient has been given opportunity to ask questions and have those questions answered and is agreeable to the treatment plan/followup. The patient understands that the patient is able to return to the at any time for further evaluation and reassessment, as new conditions could arise or symptoms could evolve over time. This dictation was created using voice recognition software. While attempts have been made to review the dictation as it is transcribed, on occasion the spoken word may be misinterpreted by the technology, leading to omissions or inappropriate words or phrases. FINAL IMPRESSION 1. Acute URI Electronically Signed By: Meek Bernal DO This dictation was created using voice recognition software. While attempts have been made to review the dictation as it is transcribed, on occasion the spoken word may be misinterpreted by the technology, leading to omissions or inappropriate words or phrases. 2016- patient came out of room and says that she does not want the COVID test. Dr. Bernal notified. Patient provided with discharge instructions, patient education and follow up information. Patient verbalizes understanding and states has no questions at this time. Copy of the After Visit Summary given to the patient.Vy documented in this encounter [facility] Instructions 04-20-2022 Patient InstructionsAttachments Note Date & Type Note Facility 04-20-2022 Instructions Vy Trinidad RN - 04/20/2022 7:15 PM EDT You may receive a survey following your visit today. We appreciate any feedback you have so that we can provide the best care possible. This may be in the form of an email or telephone call. Recommend isolation/quarantine at home and recommended return to work/school per CDC recommendations Recommend using [id number] medications for symptomatic management. Recommend follow-up in the emergency department if you develop any difficulty breathing, shortness of breath, increased respiratory effort, increased respiratory noises or signs of declining respiratory status. The following attachments cannot be sent through Care Everywhere.URI (Upper Respiratory Infection): Viral ([place] Island[place])documented in this encounter [facility] History and physical note 01-16-2021 Note Date & Type Note Facility 01-16-2021 Note [id number] #1.00CD:127 [facility] History and physical note 11-07-2020 Note Date & Type Note Facility 11-07-2020 Note [id number]# 1.00CD:127 [facility] Evaluation note Note Date & Type Note Facility Evaluation note Diagnosis Acute URI- Primary Acute upper respiratory infections of unspecified site documented in this encounter [facility] Evaluation note Note Date & Type Note Facility Evaluation note No assessment information availa [facility] Work Phone: Summary Purpose Family History No Family History Records FoundNo Family History Records FoundNo Family History Records FoundNo Family History Records FoundNo Family History Records FoundNo Family History Records Found Advance Directives No Advanced Directives Records Found Advance Directive Response Recorded Date/ Time Advance Directives No January 17 12:49pm Chief Complaint and Reason for Visit Chief Complaint LABS Additional Source Comments INFORMATION SOURCE (unrecogn ized section and content) DATE CREATED AUTHOR 02/22/2021 [facility] DATE CREATED AUTHOR AUTHOR'S ORGANIZ ATION 04/23/2022 [facility] ([facility]) DATE CREATED AUTHOR AUTHOR'S ORGANIZ ATION 04/25/2022 [facility] DATE CREATED AUTHOR AUTHOR'S ORGANIZ ATION 02/01/2023 [facility] DATE CREATED AUTHOR AUTHOR'S ORGANIZ ATION 03/14/2024 [facility] DATE CREATED AUTHOR AUTHOR'S ORGANIZ ATION 09/14/2024 [facility] Reason for Visit (unrecogniz ed section and content) Reason Comments Sore Throat Pt c/o sore throat s tarting last night. Generalized Body Aches Care Teams (unrecognized sec tion and content) [employer] Worker Relationship Specialty Start Date End Date Evelyne Leggett MD [address] [place] [id number] PCP - General Family Medicine 04/20/22 Team Status: Active Member Role Status Dates Evelyne Leggett MD Primary Care Provider Active Team Status: Inactive Member Role Status Dates Evelyne Leggett MD Primary Care Provider Active Jayro Schulz , Attending Provider Active Goals (unrecognized section and content) Goals may be documented in a n alternate section FOR RECORDS PERTAINING TO PATIENTS WHO ARE OR HAVE BEEN ENROLLED IN A CHEMICAL DEPENDENCY/SUBSTANCEABUSE PROGRAM, SOME INFORMATION MAY BE OMITTED. This clinical summary was aggregated from multiple sources. Caution should be exercised in using it in the provision of clinical care. This summary normalizes information from multiple sources, and as a consequence, information in this document may materially change the coding, format and clinical context of patient data. In addition, data may be omitted in some cases. CLINICAL DECISIONS SHOULD BE BASED ON THE PRIMARY CLINICAL RECORDS. [facility] [employer] provides no warranty or guarantee of the accuracy or completeness of information in this document.
== END 2024-09-16 11:34 | disposition home or self-care (01) ==
PROVIDERS: Visit Provider Family Medicine
DX: M54.50 Low back pain, unspecified (principal); M54.2 Cervicalgia; M85.88 Other specified disorders of bone density and structure, other site; M51.369 Other intervertebral disc degeneration, lumbar region without mention of lumbar back pain or lower extremity pain
CPT/HCPCS: 72052; 72114